=== PATIENT | female | born 1980 | race American Indian/Alaskan Native ===

== ENCOUNTER 2016-06-08 08:43 | Emergency (ER) | payer OTHER ==
--- NOTE | 2016-06-08 09:14 | Emergency Department Report ---
Chief Complaint: Vaginal Bleeding Stated Complaint: VAGINAL BLEEDING Time Seen by Provider: 06/08/16 09:07 - HPI History of Present Illness: 36-year-old -Filipino female comes in for vaginal bleeding that started this morning. Patient reports that she has some abdominal pressure. Patient reports she does have a past medical history of hypertension she is on amlodipine 10 mg but did not take it this morning secondary to concern of vaginal bleeding and just left the house to be evaluated here at the emergency room. The headache chest pain shortness of breathing. 8, para 1, miscarriage 3, 3. - Exam Vital Signs: Vital Signs 06/08/16 08:46 Temperature 98.7 F Pulse Rate 90 Respiratory 20 Rate Blood Pressure 198/142 O2 Sat by Pulse 100 Oximetry Physical Exam: Patient's alert and oriented 3 cardiovascular: Regular rate and rhythm S1-S2 no murmurs appreciated, Respiratory: Clear to auscultation bilateral Abdomen soft nontender bowel sounds present no distention MSE screening note: Focused history and physical exam performed. Due to findings the following was ordered: Appropriate labs have been ordered patient be evaluated the main ER ED Disposition for MSE Condition: Stable
[2016-06-08 09:47] LABS: Eosinophils % (Auto) 1.2 % (0.0-4.3); Hematocrit 39.7 % (30.3-42.9); Hemoglobin 13.1 gm/dl (10.1-14.3); Mean Corpuscular HGB Conc 33 % (30-34); Mean Corpuscular Hemoglobin 27 pg (28-32); Mean Corpuscular Volume 81 fl (79-97); Platelet Count 316 K/mm3 (140-440); Red Blood Count 4.89 M/mm3 (3.65-5.03); Red Cell Distribution Width 15.1 % (13.2-15.2)
[2016-06-08 09:58] LABS: Anion Gap 15 mmol/L; BUN/Creatinine Ratio 12.85; Blood Urea Nitrogen 9 mg/dL (7-17); Calcium 9.2 mg/dL (8.4-10.2); Carbon Dioxide 27 mmol/L (22-30); Glucose 93 mg/dL (65-100); Potassium 4.4 mmol/L (3.6-5.0); Sodium 137 mmol/L (137-145)
[2016-06-08 11:00] LABS: Bilirubin,Urine NEG (Negative); Blood,Urine LG (Negative); Ketones,Urine TR mg/dL (Negative); Leukocyte Esterase,Urine NEG (Negative); Nitrite,Urine NEG (Negative); RBC,Urine > 182.0 /HPF (0.0-6.0); Urobilinogen,Urine < 2.0 mg/dL (<2.0); WBC,Urine > 182.0 /HPF (0.0-6.0)
[2016-06-08] MEDS ORDERED: APRESOLINE IV ONE ×2 (11:18→11:50)
[2016-06-08] MEDS ORDERED: NORMODYNE IV ONE ×3 (13:32→14:55)
--- NOTE | 2016-06-08 14:01 | Admit Criteria Form ---
Admission Criteria Documentation: HYPERTENSIVE DISORDERS OF Clinical Indications for Admission to Inpatient Care (Place 'X' for any and all applicable criteria): Admission is indicated for ANY ONE of the following (1)(2)(3)(4)(5): [ ]I. Eclampsia[A][B] [ ]II. Preeclampsia with severe features (ie, severe preeclampsia) indicated by ANY ONE of the following[B][C]: [ ]a) SBP greater than or equal to 160 mm Hg or DBP greater than or equal to 110 mm Hg on 2 occasions at least 4 hours apart while the patient is at bed rest (unless antihypertensive therapy is initiated before this time) [ ]b) Platelet count less than 100,000/mm3 (100 x109/L) [ ]c) Impaired liver function as indicated by ANY ONE of the following: [ ]i. Elevation of liver enzymes (eg, SGOT, SGPT) to twice normal concentration [ ]ii. Severe persistent right upper quadrant or epigastric pain unresponsive to medication and not accounted for by alternative diagnosis [ ]d) Progressive renal insufficiency indicated by ANY ONE of the following: [ ]i. Serum creatinine concentration greater than 1.1 mg/dL (97 micromoles/L) [ ]ii. Doubling (from baseline) of serum creatinine concentration in the absence of other renal disease [ ]e) Pulmonary edema [ ]f) Cerebral or visual symptoms (eg, headache, Altered mental status , changes in vision) [ ]III. Delivery planned due to nonsevere preeclampsia as indicated by ALL of the following: [ ]a) Nonsevere preeclampsia present as indicated by ALL of the following: [ ]i. Woman at 20 or more weeks' gestation [ ]ii. New-onset SBP greater than or equal to 140 mm Hg but less than 160 mm Hg or DBP greater than or equal to 90 mm Hg but less than 110 mm Hg on 2 occasions at least 4 hours apart [ ]iii. Proteinuria present as indicated by ANY ONE of the following: [ ]A. Urinary protein excretion greater than or equal to 300 mg per 24-hour collection (or this amount extrapolated from a shorter timed collection) [ ]B. Protein/creatinine ratio greater than or equal to 0.3 (measured in mg/dL) [ ]b) Delivery indicated due to ANY ONE of the following: [ ]i. Gestational age of 37 0/7 weeks or more [ ]ii. Gestational age of 34 0/7 weeks to 36 6/7 weeks and ANY ONE of the following: [ ]A. Progressive labor or rupture of membranes [ ]B. Abnormal biophysical profile [ ]C. Suspected abruptio placentae [ ]D. Ultrasound estimate of weight less than 5th percentile [ ]E. Other indication for delivery [ ]IV. Delivery planned due to gestational hypertension[D] because of ANY ONE of the following: [ ]a) Delivery indicated because gestational age of 37 0/7 weeks or more has been reached [ ]b) Gestational age of 34 0/7 weeks to 36 6/7 weeks for which delivery is indicated because of ANY ONE of the following: [ ]i. Progressive labor or rupture of membranes [ ]ii. Abnormal biophysical profile [ ]iii. Suspected abruptio placentae [ ]iv. Ultrasound estimate of weight less than 5th percentile [ ]v. Other indication for delivery [ ]V. Hypertension of any category[E] during with acute end organ damage as indicated by ANY ONE of the following: [ ]a) Hypertensive encephalopathy (eg, Altered mental status that is severe or persistent )(11) [ ]b) Cerebral infarction [ ]c) Intracranial hemorrhage [ ]d) Myocardial ischemia or infarction [ ]e) Pulmonary edema [ ]f) Aortic dissection [ ]g) Seizure [ ]h) Papilledema [ ]i) Microangiopathic hemolytic anemia [ ]j) Visual loss [ ]k) Acute renal failure [ ]) Hypertension during with evidence of compromise as indicated by ANY ONE of the following: [ ]a) Abnormal heart tones [ ]b) Abnormal stress test [ ]c) Abnormal biophysical profile [ ]VII) patient requires inpatient control of blood pressure indicated by (see Hypertensive Disorders of : Observation Care [facility] guideline as appropriate) ALL of the following: [ ]a) SBP is greater than or equal to 160 mm Hg or DBP is greater than or equal to 105 mm Hg [ ]b) Blood pressure cannot be reduced below these levels with outpatient or observation care treatment (eg, oral medications not effective) Extended stay beyond goal length of stay may be needed for : [ ]a) Eclampsia [ ]b) Ongoing compromise [ ]c) Complications of hypertensive disorders of [ ]d) Active comorbidities (eg, heart failure, poorly controlled diabetes, renal insufficiency) [ ]e) Persistent hypertension [ ]f) Delivery planned The original Ellie Erazo content created by [employer] has been revised. The portions of the content which have been revised are identified through the use of italic text or in bold, and [facility] has neither reviewed nor approved the modified material. All other unmodified content is copyright [facility]. Please see references footnoted in the original [facility] [employer] edition 2016.
[2016-06-08] MEDS ORDERED: TYLENOL ONE (14:53)
[2016-06-08] MEDS ORDERED: TYLENOL PO ONE (15:01)
--- NOTE | 2016-06-08 15:35 | Emergency Department Report ---
HPI - General Chief Complaint: Vaginal Bleeding Time Seen by Provider: 06/08/16 09:07 - HPI HPI: Chief complaint: Vaginal bleeding and HPI: Patient is a 36-year-old female 8 para 1 is carious 3 3 and states that she found out 2 days ago that she was again. Patient states she began having bleeding this morning. Patient states it is spotting. Patient has a history of hypertension and is on Norvasc. Patient states she has not taken her Norvasc today took her last dose yesterday morning. Patient denies headache, shortness of breath or chest pain. Mode of arrival: [private car] Source: [Patient] Began: This morning Duration: Continuous Context: See above Quality: Cramping abdominal pain Severity: 4 out of 10 Improved with: Nothing Worsened with: Nothing Associated signs and symptoms: No fever, nausea or vomiting. ED Past Medical Hx - Past Medical History Previous Medical History?: Yes Hx Hypertension: Yes - Surgical History Past Surgical History?: Yes Hx Breast Surgery: Yes (Bilateral lumpectomy) Additional Surgical History: carpal tunner repair L - Social History Smoking Status: Former Smoker Substance Use Type: Prescribed - Medications Home Medications: Home Medications Medication Instructions Recorded Confirmed Last Taken Type Labetalol [Normodyne TAB] 200 mg PO BID #60 tablet 06/08/16 Unknown Rx ED Review of Systems ROS: Stated complaint: VAGINAL BLEEDING Other details as noted in HPI ROS Constitutional: No fever ENT: No uri symptoms Cardiovascular: No chest pain Respiratory: No sob or cough GI: No nausea vomiting or diarrhea : No dysuria frequency or urgency, Skin: No rash Neuro: No focal weakness or numbness Psych: No depression Efrain/lymph: No edema Physical Exam - Physical Exam Vital Signs: Vital Signs 06/08/16 06/08/16 06/08/16 08:46 12:06 12:07 Temperature 98.7 F Pulse Rate 90 Respiratory 20 Rate Blood Pressure 198/142 179/119 179/119 O2 Sat by Pulse 100 100 Oximetry 06/08/16 06/08/16 06/08/16 12:09 12:11 12:13 Temperature Pulse Rate Respiratory Rate Blood Pressure 179/119 179/119 179/119 O2 Sat by Pulse 100 100 100 Oximetry 06/08/16 06/08/16 06/08/16 12:15 12:16 12:17 Temperature Pulse Rate Respiratory Rate Blood Pressure 179/119 179/119 179/119 O2 Sat by Pulse 100 100 Oximetry 06/08/16 06/08/16 06/08/16 12:19 12:21 12:23 Temperature Pulse Rate Respiratory Rate Blood Pressure 179/119 179/119 179/119 O2 Sat by Pulse 100 100 100 Oximetry 06/08/16 06/08/16 06/08/16 12:25 12:27 12:29 Temperature Pulse Rate Respiratory Rate Blood Pressure 179/119 179/119 179/119 O2 Sat by Pulse 100 100 100 Oximetry 06/08/16 06/08/16 06/08/16 12:30 12:31 12:33 Temperature Pulse Rate Respiratory Rate Blood Pressure 189/123 189/123 189/123 O2 Sat by Pulse 100 100 100 Oximetry 06/08/16 06/08/16 06/08/16 12:35 12:37 12:39 Temperature Pulse Rate Respiratory Rate Blood Pressure 189/123 189/123 174/123 O2 Sat by Pulse 100 100 100 Oximetry 06/08/16 06/08/16 06/08/16 12:41 12:43 12:45 Temperature Pulse Rate Respiratory Rate Blood Pressure 174/123 174/123 179/114 O2 Sat by Pulse 100 100 100 Oximetry 06/08/16 06/08/16 06/08/16 12:47 12:49 12:51 Temperature Pulse Rate Respiratory Rate Blood Pressure 179/114 179/114 179/119 O2 Sat by Pulse 100 100 100 Oximetry 06/08/16 06/08/16 06/08/16 12:53 12:55 12:57 Temperature Pulse Rate Respiratory Rate Blood Pressure 179/119 179/119 179/119 O2 Sat by Pulse 100 100 100 Oximetry 06/08/16 06/08/16 06/08/16 12:58 12:59 13:00 Temperature Pulse Rate Respiratory Rate Blood Pressure 187/112 187/112 188/116 O2 Sat by Pulse 100 100 Oximetry 06/08/16 06/08/16 06/08/16 13:01 13:03 13:05 Temperature Pulse Rate Respiratory Rate Blood Pressure 188/116 188/116 188/116 O2 Sat by Pulse 100 100 100 Oximetry 06/08/16 06/08/16 06/08/16 13:06 13:07 13:09 Temperature Pulse Rate Respiratory Rate Blood Pressure 188/116 188/116 188/116 O2 Sat by Pulse 100 100 100 Oximetry 06/08/16 06/08/16 06/08/16 13:11 13:13 13:15 Temperature Pulse Rate Respiratory Rate Blood Pressure 188/116 188/116 204/119 O2 Sat by Pulse 100 100 100 Oximetry 06/08/16 06/08/16 06/08/16 13:16 13:19 13:30 Temperature Pulse Rate Respiratory Rate Blood Pressure 204/119 188/116 185/115 O2 Sat by Pulse 100 83 L Oximetry 06/08/16 06/08/16 06/08/16 13:41 13:45 14:00 Temperature Pulse Rate Respiratory Rate Blood Pressure 188/116 167/101 172/91 O2 Sat by Pulse Oximetry 06/08/16 14:23 Temperature Pulse Rate Respiratory 16 Rate Blood Pressure O2 Sat by Pulse 100 Oximetry Physical Exam: GENERAL: The patient is well-developed well-nourished . HEENT: Normocephalic. Atraumatic. Extraocular motions are intact. Patient has moist mucous membranes. NECK: Supple. No meningitic signs are noted. There is no adenopathy noted. CHEST/LUNGS: Clear to auscultation. There is no respiratory distress noted. HEART/CARDIOVASCULAR: Regular. There is no tachycardia. There is no gallop rub or murmur. ABDOMEN: Abdomen is soft, nontender. Patient has normal bowel sounds. There is no abdominal distention. SKIN: There is no rash. There is no edema. There is no diaphoresis. NEURO: The patient is awake, alert, and oriented. The patient is cooperative. The patient has no focal neurologic deficits. The patient has normal speech. MUSCULOSKELETAL: There is no tenderness or deformity. There is no limitation range of motion. There is no evidence of acute injury. ED Course Vital Signs 06/08/16 06/08/16 06/08/16 08:46 12:06 12:07 Temperature 98.7 F Pulse Rate 90 Respiratory 20 Rate Blood Pressure 198/142 179/119 179/119 O2 Sat by Pulse 100 100 Oximetry 06/08/16 06/08/16 06/08/16 12:09 12:11 12:13 Temperature Pulse Rate Respiratory Rate Blood Pressure 179/119 179/119 179/119 O2 Sat by Pulse 100 100 100 Oximetry 06/08/16 06/08/16 06/08/16 12:15 12:16 12:17 Temperature Pulse Rate Respiratory Rate Blood Pressure 179/119 179/119 179/119 O2 Sat by Pulse 100 100 Oximetry 06/08/16 06/08/16 06/08/16 12:19 12:21 12:23 Temperature Pulse Rate Respiratory Rate Blood Pressure 179/119 179/119 179/119 O2 Sat by Pulse 100 100 100 Oximetry 06/08/16 06/08/16 06/08/16 12:25 12:27 12:29 Temperature Pulse Rate Respiratory Rate Blood Pressure 179/119 179/119 179/119 O2 Sat by Pulse 100 100 100 Oximetry 06/08/16 06/08/16 06/08/16 12:30 12:31 12:33 Temperature Pulse Rate Respiratory Rate Blood Pressure 189/123 189/123 189/123 O2 Sat by Pulse 100 100 100 Oximetry 06/08/16 06/08/16 06/08/16 12:35 12:37 12:39 Temperature Pulse Rate Respiratory Rate Blood Pressure 189/123 189/123 174/123 O2 Sat by Pulse 100 100 100 Oximetry 06/08/16 06/08/16 06/08/16 12:41 12:43 12:45 Temperature Pulse Rate Respiratory Rate Blood Pressure 174/123 174/123 179/114 O2 Sat by Pulse 100 100 100 Oximetry 06/08/16 06/08/16 06/08/16 12:47 12:49 12:51 Temperature Pulse Rate Respiratory Rate Blood Pressure 179/114 179/114 179/119 O2 Sat by Pulse 100 100 100 Oximetry 06/08/16 06/08/16 06/08/16 12:53 12:55 12:57 Temperature Pulse Rate Respiratory Rate Blood Pressure 179/119 179/119 179/119 O2 Sat by Pulse 100 100 100 Oximetry 06/08/16 06/08/16 06/08/16 12:58 12:59 13:00 Temperature Pulse Rate Respiratory Rate Blood Pressure 187/112 187/112 188/116 O2 Sat by Pulse 100 100 Oximetry 06/08/16 06/08/16 06/08/16 13:01 13:03 13:05 Temperature Pulse Rate Respiratory Rate Blood Pressure 188/116 188/116 188/116 O2 Sat by Pulse 100 100 100 Oximetry 06/08/16 06/08/16 06/08/16 13:06 13:07 13:09 Temperature Pulse Rate Respiratory Rate Blood Pressure 188/116 188/116 188/116 O2 Sat by Pulse 100 100 100 Oximetry 06/08/16 06/08/16 06/08/16 13:11 13:13 13:15 Temperature Pulse Rate Respiratory Rate Blood Pressure 188/116 188/116 204/119 O2 Sat by Pulse 100 100 100 Oximetry 06/08/16 06/08/16 06/08/16 13:16 13:19 13:30 Temperature Pulse Rate Respiratory Rate Blood Pressure 204/119 188/116 185/115 O2 Sat by Pulse 100 83 L Oximetry 06/08/16 06/08/16 06/08/16 13:41 13:45 14:00 Temperature Pulse Rate Respiratory Rate Blood Pressure 188/116 167/101 172/91 O2 Sat by Pulse Oximetry 06/08/16 14:23 Temperature Pulse Rate Respiratory 16 Rate Blood Pressure O2 Sat by Pulse 100 Oximetry - Reevaluation(s) Reevaluation #1: 06/08/16 15:33 Patient was given 20 mg of IV hydralazine after consulting with the [facility] client technical professional Dr. Marva Edmonds. Patient was then given 20 mg of IV labetalol followed by 20 mg of IV labetalol. Patient has improvement of her blood pressure. Patient will be put on 200 mg of labetalol twice a day and referred back to Dr. Edmonds. ED Medical Decision Making - Lab Data Result diagrams: 06/08/16 09:35 06/08/16 09:35 - Radiology Data Radiology results: report reviewed (pelvic ultrasound shows a sac in the uterus at 5 weeks 2 days. No pole no heartbeat irregular shape) Critical care attestation.: If time is entered above; I have spent that time in minutes in the direct care of this critically ill patient, excluding procedure time. ED Disposition Clinical Impression: Threatened miscarriage Hypertension Qualifiers: Hypertension type: essential hypertension Qualified Code(s): I10 - Essential ( primary) hypertension Disposition: DISCHARGED TO HOME OR SELFCARE Is pt being admited?: No Does the pt Need Aspirin: No Condition: Stable Instructions: Hypertension (ED), Threatened Miscarriage (ED) Additional Instructions: Stopped taking your Norvasc and switched to labetalol. Prescriptions: Labetalol [Normodyne TAB] 200 mg PO BID #60 tablet Referrals: MARVA EDMONDS MD [Staff Physician] - 3-5 Days (Dr. Edmonds is an [facility] for you to follow-up with.) Time of Disposition: 15:49
[2016-06-08 15:36] VITALS: BP 140/90
--- NOTE | 2016-06-08 15:45 | Ultrasound Report ---
Transvaginal and transabdominal OB ultrasound. History: Vaginal bleeding. Her serum hCG at the time of the study is 4774. Findings: There is a subtle lucency within the endometrial cavity measuring 6.9 mm in diameter. The shape of the sonolucency is somewhat flattened, and there is no evidence of a yolk sac or a pole. No cardiac activity is identified. There is no subchorionic hemorrhage. There are multiple heterogeneous uterine masses the largest of which measures 3.8 x 5.2 cm located in the fundus. There is a 1.8 cm in diameter complex lesion in the right ovary. The left ovary is normal. Impression: The endometrial sonolucency may represent a gestational sac although the contour is abnormally flattened. There is no evidence of a pole or yolk sac at this time. A followup study in 5-7 days is recommended if clinically appropriate. 2. Multiple uterine fibroids. 3. Probable complex cyst in the right ovary.
== END 2016-06-08 16:04 | disposition home or self-care (01) ==
LOC: ED 08:43
DX: O20.0 Threatened abortion (principal); I10 Essential (primary) hypertension; Z87.891 Personal history of nicotine dependence
CPT/HCPCS: 36415; 76801; 76817; 80048; 81001; 84702; 85025; 86850; 86900; 86901; 96374; 96375; 96376; 99284; J0360

== ENCOUNTER 2016-06-26 12:45 | Emergency (ER) | payer OTHER ==
[2016-06-26] MEDS ORDERED: APRESOLINE IV ONE ×2 (13:17→14:28)
[2016-06-26 13:38] LABS: Hematocrit 41.2 % (30.3-42.9); Hemoglobin 13.1 gm/dl (10.1-14.3); Mean Corpuscular HGB Conc 32 % (30-34); Mean Corpuscular Hemoglobin 26 pg (28-32); Mean Corpuscular Volume 82 fl (79-97); Platelet Count 298 K/mm3 (140-440); Red Blood Count 5.05 M/mm3 (3.65-5.03); Red Cell Distribution Width 16.4 % (13.2-15.2); White Blood Count 5.4 K/mm3 (4.5-11.0)
[2016-06-26 13:53] LABS: Anion Gap 15 mmol/L; BUN/Creatinine Ratio 8.57; Blood Urea Nitrogen 6 mg/dL (7-17); Carbon Dioxide 27 mmol/L (22-30); Chloride 102.6 mmol/L (98-107); Glucose 92 mg/dL (65-100); Potassium 3.5 mmol/L (3.6-5.0); Sodium 141 mmol/L (137-145)
--- NOTE | 2016-06-26 14:30 | Emergency Department Report ---
HPI - General Chief Complaint: Abdominal Pain Time Seen by Provider: 06/26/16 13:42 - HPI HPI: Chief complaint: Vaginal spotting and pelvic pain HPI: Patient is a 36-year-old female 8 para 1 miscarriage 3 3 who was seen here June 08 of this month with hypertension and vaginal bleeding. Patient was switched from Norvasc to labetalol but did not get the labetalol and continue to take her Norvasc. Patient states she took her Norvasc this morning but despite that her blood pressure is elevated. Patient's ultrasound showed an intrauterine sac that was misshapen and there was concern for threatened miscarriage or missed AB. Patient did not follow-up with OB as she states she did not have any insurance. Patient is coming back today for vaginal spotting. Mode of arrival: private car Source: Patient old chart Began: Patient developed pelvic pain 3 days ago. Duration: See above Context: See above Quality: Crampy Severity: 7 out of 10 Improved with: Nothing Worsened with: Nothing Associated signs and symptoms: See above. No headache, nausea, vomiting ED Past Medical Hx - Past Medical History Hx Hypertension: Yes Additional medical history: preclampsia with other preg - Surgical History Hx Breast Surgery: Yes (Bilateral lumpectomy) Additional Surgical History: carpal tunner repair L - Social History Smoking Status: Never Smoker Substance Use Type: None - Medications Home Medications: Home Medications Medication Instructions Recorded Confirmed Last Taken Type Labetalol [Normodyne TAB] 200 mg PO BID #60 tablet 06/08/16 Unknown Rx Ibuprofen [Motrin 600 MG tab] 600 mg PO Q8H PRN #20 tablet 06/26/16 Unknown Rx Losartan/Hydrochlorothiazide 1 each PO DAILY #30 tablet 06/26/16 Unknown Rx [Losartan-Hctz 100-25 mg Tab] Verapamil [Calan] 120 mg PO BID #60 tablet 06/26/16 Unknown Rx ED Review of Systems ROS: Stated complaint: ABD PAIN Other details as noted in HPI ROS Constitutional: No fever ENT: No uri symptoms Cardiovascular: No chest pain Respiratory: No sob or cough GI: No nausea vomiting or diarrhea : No dysuria frequency or urgency, Skin: No rash Neuro: No focal weakness or numbness Psych: No depression Efrain/lymph: No edema Physical Exam - Physical Exam Vital Signs: Vital Signs 06/26/16 06/26/16 06/26/16 12:55 13:47 13:49 Temperature 98.5 F Pulse Rate 84 84 Respiratory 20 Rate Blood Pressure 195/138 195/138 176/116 O2 Sat by Pulse 100 Oximetry 06/26/16 06/26/16 13:53 14:00 Temperature Pulse Rate Respiratory Rate Blood Pressure 176/107 175/102 O2 Sat by Pulse Oximetry Physical Exam: GENERAL: The patient is well-developed well-nourished . HEENT: Normocephalic. Atraumatic. Extraocular motions are intact. Patient has moist mucous membranes. NECK: Supple. No meningitic signs are noted. There is no adenopathy noted. CHEST/LUNGS: Clear to auscultation. There is no respiratory distress noted. HEART/CARDIOVASCULAR: Regular. There is no tachycardia. There is no gallop rub or murmur. ABDOMEN: Abdomen is soft, mild right lower quadrant tenderness. No rebound or guarding Patient has normal bowel sounds. There is no abdominal distention. SKIN: There is no rash. There is no edema. There is no diaphoresis. NEURO: The patient is awake, alert, and oriented. The patient is cooperative. The patient has no focal neurologic deficits. The patient has normal speech. MUSCULOSKELETAL: There is no tenderness or deformity. There is no limitation range of motion. There is no evidence of acute injury. ED Course Vital Signs 06/26/16 06/26/16 06/26/16 12:55 13:47 13:49 Temperature 98.5 F Pulse Rate 84 84 Respiratory 20 Rate Blood Pressure 195/138 195/138 176/116 O2 Sat by Pulse 100 Oximetry 06/26/16 06/26/16 13:53 14:00 Temperature Pulse Rate Respiratory Rate Blood Pressure 176/107 175/102 O2 Sat by Pulse Oximetry - Reevaluation(s) Reevaluation #1: 06/26/16 14:30 Patient given 10 of IV hydralazine with some lowering of her pressure. Patient will be given a second dose when she returns from ultrasound. 06/26/16 17:15 Patient given another 10 of hydralazine and 20 mg of IV labetalol. Will change her home blood pressure medication to something more affordable and add a second blood pressure medication. ED Medical Decision Making - Lab Data Result diagrams: 06/26/16 13:13 06/26/16 13:13 Laboratory Tests 06/08/16 06/26/16 09:35 13:13 HCG, Quant 4774 H 18.26 H Urinalysis within normal limits. - Radiology Data Radiology results: report reviewed (no IUP noted. No retained products of conception noted. A previous ultrasound showed a misshapened sac and patient most likely miscarried at that time.) - Medical Decision Making Patient's hCG has now dropped to 18. Critical care attestation.: If time is entered above; I have spent that time in minutes in the direct care of this critically ill patient, excluding procedure time. ED Disposition Clinical Impression: Miscarriage, Essential hypertension Disposition: DISCHARGED TO HOME OR SELFCARE Is pt being admited?: No Does the pt Need Aspirin: No Condition: Stable Instructions: Spontaneous Miscarriage (ED), Hypertension (ED) Additional Instructions: You can take your Norvasc until finished along with the losartan 100/25. When you finish the Norvasc begin taking the verapamil in addition to the losartan. Prescriptions: Ibuprofen [Motrin 600 MG tab] 600 mg PO Q8H PRN #20 tablet PRN Reason: Pain Losartan/Hydrochlorothiazide [Losartan-Hctz 100-25 mg Tab] 1 each PO DAILY #30 tablet Verapamil [Calan] 120 mg PO BID #60 tablet Referrals: [facility] [Provider Group] - 3-5 Days [facility] [Provider Group] - 7-10 days (Follow-up for a blood pressure recheck.) Time of Disposition: 16:39
[2016-06-26 15:45] LABS: Bacteria,Urine 1+ /HPF (Negative); Bilirubin,Urine NEG (Negative); Blood,Urine NEG (Negative); Ketones,Urine NEG (Negative); Leukocyte Esterase,Urine NEG (Negative); Mucus,Urine FEW /HPF; Nitrite,Urine NEG (Negative); Protein,Urine <15 mg/dL mg/dL (Negative); Urobilinogen,Urine < 2.0 mg/dL (<2.0)
--- NOTE | 2016-06-26 15:45 | Ultrasound Report ---
FINAL REPORT EXAM: US TRANSVAGINAL HISTORY: preg with pelvic pain TECHNIQUE: Ultrasound pelvis transvaginal with color Doppler evaluation PRIORS: None. FINDINGS: Uterus measures 11.2 x 7.6 x 6.3 centimeters endometrial thickness is 0.48 centimeters multiple solid-appearing echogenic foci are seen within uterus the largest is 2.5 x 1.8 x 3.6 centimeters most consistent with fibroids the right ovary was not identified Left ovary is 3.4 x 1.1 x 1.8 centimeters. There is a cystic focus within the left ovary 1.6 centimeters containing diffuse low-level echoes. No definitive abnormal adnexal mass identified IMPRESSION: Intrauterine gestation was not identified. Differential consideration includes very early IUP, occult ectopic or blighted ovum. Continued followup recommended Multiple uterine fibroids noted identified The right ovary was not identified
--- NOTE | 2016-06-26 15:46 | Ultrasound Report ---
FINAL REPORT EXAM: US OB \T\lt; = 14 WEEKS FETUS HISTORY: preg with pelvic pain TECHNIQUE: PRIORS: None. FINDINGS: Uterus measures 11.2 x 7.6 x 6.3 centimeters endometrial thickness is 0.48 centimeters multiple solid-appearing echogenic foci are seen within uterus the largest is 2.5 x 1.8 x 3.6 centimeters most consistent with fibroids the right ovary was not identified Left ovary is 3.4 x 1.1 x 1.8 centimeters. There is a cystic focus within the left ovary 1.6 centimeters containing diffuse low-level echoes. No definitive abnormal adnexal mass identified IMPRESSION: Intrauterine gestation was not identified. Differential consideration includes very early IUP, occult ectopic or blighted ovum. Continued followup recommended Multiple uterine fibroids noted The right ovary was not identified
[2016-06-26] MEDS ORDERED: NORMODYNE IV ONE (16:31)
[2016-06-26] MEDS ORDERED: MOTRIN PO ONE (17:05)
[2016-06-26 17:19] VITALS: BP 158/101
== END 2016-06-26 17:31 | disposition home or self-care (01) ==
LOC: ED 12:45
DX: O03.9 Complete or unspecified spontaneous abortion without complication (principal); O26.891 Other specified pregnancy related conditions, first trimester; I10 Essential (primary) hypertension
CPT/HCPCS: 36415; 76801; 76817; 76830; 80048; 81001; 84702; 85027; 96374; 96375; 96376; 99284; J0360

== ENCOUNTER 2016-10-04 10:20 | Emergency (ER) | payer OTHER ==
--- NOTE | 2016-10-04 11:00 | Emergency Department Report ---
Entered by MONIKA SOUZA, acting as scribe for MIKE HERNDON NP. Chief Complaint: Vaginal Bleeding Stated Complaint: POSITIVE FOR PREG/BLEEDING AND CRAMPING Time Seen by Provider: 10/04/16 10:47 - HPI History of Present Illness: 36 y/o female, nontoxic, well nourished in appearance, no acute signs of distress presents with right sided lower pelvic pain and vaginal bleeding since yesterday. pt denies blurry vision, n/v/d, fever, chills, chest pain, SOB, CASTRO or dizziness, numbness, tingling. She notes passing a small clot yesterday. Pt notes a positive test last week. She is known HTN at baseline and reports taking amlodipine at 0200 this morning. - ROS Review of Systems: Pt notes vaginal bleeding, lower pelvic pain Pt denies blurry vision, n/v/d, fever, chills, chest pain, SOB, CASTRO or dizziness , numbness, tingling - Exam Vital Signs: Vital Signs 10/04/16 10:31 Temperature 98.8 F Pulse Rate 100 H Respiratory 17 Rate Blood Pressure 181/126 O2 Sat by Pulse 100 Oximetry Physical Exam: Constitutional: Non toxic appearing, NAD. Cardiovascular: Normal rate and rhythm with normal S1/S2 sounds. Respiratory: No respiratory distress. Lung sounds clear to auscultation bilaterally. Abdomen: Soft, nontender, and nondistended. Positive bowel sounds. No hepatosplenomegaly was noted. No guarding or rebound tenderness, negative epigastric bruit. Negative psoas sign, negative zamora sign, negative McBurneys sign. Right sided pelvic suprapubic tenderness. MSE screening note: Focused history and physical exam performed. Due to findings the following was ordered: Amylase, BMP, CBC, Preg Test, Lipase, UA, US OB and US Transvaginal. ED Disposition for MSE Condition: Stable This documentation as recorded by the scribe,MONIKA SOUZA,accurately reflects the service I personally performed and the decisions made by me,MIKE HERNDON, MARTINA.
[2016-10-04 11:30] LABS: Basophils % (Auto) 0.7 % (0.0-1.8); Eosinophils % (Auto) 0.6 % (0.0-4.3); Hematocrit 39.7 % (30.3-42.9); Mean Corpuscular HGB Conc 33 % (30-34); Mean Corpuscular Hemoglobin 27 pg (28-32); Mean Corpuscular Volume 82 fl (79-97); Platelet Count 349 K/mm3 (140-440); Red Blood Count 4.82 M/mm3 (3.65-5.03); Red Cell Distribution Width 16.5 % (13.2-15.2)
[2016-10-04 11:43] LABS: Bacteria,Urine 1+ /HPF (Negative); Bilirubin,Urine NEG (Negative); Blood,Urine LG (Negative); Ketones,Urine NEG (Negative); Leukocyte Esterase,Urine NEG (Negative); Mucus,Urine FEW /HPF; Nitrite,Urine NEG (Negative); Protein,Urine <15 mg/dL mg/dL (Negative); Urobilinogen,Urine < 2.0 mg/dL (<2.0); WBC,Urine < 1.0 /HPF (0.0-6.0)
[2016-10-04 11:47] LABS: Amylase 112 units/L (27-131); Anion Gap 17 mmol/L; BUN/Creatinine Ratio 12.85; Blood Urea Nitrogen 9 mg/dL (7-17); Calcium 9.1 mg/dL (8.4-10.2); Carbon Dioxide 26 mmol/L (22-30); Chloride 99.3 mmol/L (98-107); Glucose 89 mg/dL (65-100); Lipase 27 units/L (13-60); Potassium 3.6 mmol/L (3.6-5.0); Sodium 139 mmol/L (137-145)
[2016-10-04] MEDS ORDERED: NORVASC PO ONE (11:47)
[2016-10-04] MEDS ORDERED: NACL 0.9% 1000 ML 1,000 ML IV ONE (11:47)
--- NOTE | 2016-10-04 11:47 | Emergency Department Report ---
ED Abdominal Pain HPI - General Chief Complaint: Vaginal Bleeding Stated Complaint: POSITIVE FOR PREG/BLEEDING AND CRAMPING Time Seen by Provider: 10/04/16 11:31 Source: patient Mode of arrival: Ambulatory Limitations: No Limitations - History of Present Illness Initial Comments: Patient is a 36-year-old female with history of hypertension, at unknown weeks gestation presenting with lower abdominal cramping and vaginal spotting since this AM. Pt describes the spotting as dark red blood seen on wiping and 1 small clot. Patient reports she just found out she was 5 days ago via home test. 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 Otherwise no fevers, chills, CASTRO, dizziness, NVD, chest pain, SOB, extremity pain/swelling , travel, trauma, or sick contacts - Related Data Previous Rx's Medication Instructions Recorded Last Taken Type Labetalol [Normodyne TAB] 100 mg PO BID #14 tablet 10/04/16 Unknown Rx Allergies Allergy/AdvReac Type Severity Reaction Status Date / Time codeine Allergy Rash Verified 10/04/16 10:28 ED Review of Systems ROS: Stated complaint: POSITIVE FOR PREG/BLEEDING AND CRAMPING Other details as noted in HPI Comment: All other systems reviewed and negative ED Past Medical Hx - Past Medical History Hx Hypertension: Yes Additional medical history: preclampsia with other preg - Surgical History Hx Breast Surgery: Yes (Bilateral lumpectomy) Additional Surgical History: carpal tunnel repair L. - Social History Smoking Status: Current Every Day Smoker Substance Use Type: None - Medications Home Medications: Home Medications Medication Instructions Recorded Confirmed Last Taken Type Labetalol [Normodyne TAB] 100 mg PO BID #14 tablet 10/04/16 Unknown Rx ED Physical Exam - General Limitations: No Limitations General appearance: alert, in no apparent distress - Head Head exam: Present: atraumatic, normocephalic - Eye Eye exam: Present: normal appearance - ENT ENT exam: Present: mucous membranes moist - Neck Neck exam: Present: normal inspection - Respiratory Respiratory exam: Present: normal lung sounds bilaterally. Absent: respiratory distress - Cardiovascular Cardiovascular Exam: Present: regular rate, normal rhythm. Absent: systolic murmur, diastolic murmur, rubs, gallop - GI/Abdominal GI/Abdominal exam: Present: soft, tenderness (suprapubic), normal bowel sounds. Absent: distended, guarding, rebound, rigid - Extremities Exam Extremities exam: Present: normal inspection - Back Exam Back exam: Present: normal inspection - Neurological Exam Neurological exam: Present: alert, oriented X3 - Psychiatric Psychiatric exam: Present: normal affect, normal mood - Skin Skin exam: Present: warm, dry, intact, normal color. Absent: rash ED Course Vital Signs 10/04/16 10/04/16 10/04/16 10:31 11:51 12:00 Temperature 98.8 F Pulse Rate 100 H Respiratory 17 Rate Blood Pressure 181/126 180/117 170/113 O2 Sat by Pulse 100 Oximetry 10/04/16 10/04/16 12:02 13:47 Temperature Pulse Rate 82 Respiratory 16 Rate Blood Pressure 180/117 O2 Sat by Pulse 98 Oximetry ED Medical Decision Making - Lab Data Result diagrams: 10/04/16 11:02 10/04/16 11:02 - Radiology Data Radiology results: report reviewed OB US: Single IUP identified. A small pole measuring 3 mm in length is identifiable heart rate of 111 bpm. Estimated gestational age of 5 weeks 6 days. Prominent subchorionic hemorrhage measuring 4.7 x 3.3 cm. 1.6 cm diameter cyst in the right ovary. Multiple uterine fibroids are again noted. - Medical Decision Making Pt normally takes norvasc 10mg PO daily. Last dose was 2 am, will give 10mg now Results discussed with patient, Pt given copy of U/S and to follow up with her public accountant for BP control with another agent other than norvasc and to have her Beta quant rechecked in 2 days Critical care attestation.: If time is entered above; I have spent that time in minutes in the direct care of this critically ill patient, excluding procedure time. ED Disposition Clinical Impression: Threatened , Hypertension Disposition: DC-01 TO HOME OR SELFCARE Is pt being admited?: No Condition: Stable Instructions: Hypertension (ED), Threatened Miscarriage (ED) Prescriptions: Labetalol [Normodyne TAB] 100 mg PO BID #14 tablet Referrals: PRIMARY CARE, [Primary Care Provider] - 3-5 Days
--- NOTE | 2016-10-04 13:45 | Ultrasound Report ---
Transvaginal and transabdominal OB ultrasound. History: Vaginal bleeding. Findings: A single intrauterine is identified. A small pole measuring 3 mm in length is identified with a heart rate of 111 beats per minute. The size of the pole corresponds to a gestational age of 5 weeks 6 days. There is a prominent subchorionic hemorrhage measuring 4.7 x 3.3 cm. There is a 1.6 cm diameter cyst in the right ovary. The left ovary is normal. Multiple uterine fibroids are again noted. Minimal free fluid is noted within the cul-de-sac. Impression: 1. Viable IUP at 5 weeks 6 days gestational age. A large subchronic hemorrhage is identified. 2. Multiple uterine fibroids. 3. 1.6 cm right ovarian cyst.
[2016-10-04 15:05] VITALS: BP 180/116
== END 2016-10-04 15:10 | disposition home or self-care (01) ==
LOC: ED 10:20
DX: O20.0 Threatened abortion (principal); Z3A.01 Less than 8 weeks gestation of pregnancy; I10 Essential (primary) hypertension; F17.200 Nicotine dependence, unspecified, uncomplicated; Z88.5 Allergy status to narcotic agent
CPT/HCPCS: 36415; 76801; 76817; 80048; 81001; 82150; 83690; 84702; 85025; 86850; 86900; 86901; 96360; 99284; J7030

== ENCOUNTER 2016-10-22 06:32 | Emergency (ER) | payer SELFPAY ==
[2016-10-22 07:22] LABS: Basophils % (Auto) 0.7 % (0.0-1.8); Hematocrit 35.3 % (30.3-42.9); Hemoglobin 11.6 gm/dl (10.1-14.3); Mean Corpuscular HGB Conc 33 % (30-34); Mean Corpuscular Hemoglobin 27 pg (28-32); Mean Corpuscular Volume 83 fl (79-97); Platelet Count 317 K/mm3 (140-440); Red Blood Count 4.28 M/mm3 (3.65-5.03); Red Cell Distribution Width 17.3 % (13.2-15.2); White Blood Count 5.3 K/mm3 (4.5-11.0)
[2016-10-22 07:38] LABS: Alanine Aminotransferase 9 units/L (7-56); Albumin 3.8 g/dL (3.9-5); Albumin/Globulin Ratio 1.1 %; Alkaline Phosphatase 52 units/L (35-129); Anion Gap 18 mmol/L; BUN/Creatinine Ratio 11.66; Blood Urea Nitrogen 7 mg/dL (7-17); Calcium 9.3 mg/dL (8.4-10.2); Carbon Dioxide 22 mmol/L (22-30); Chloride 104.6 mmol/L (98-107); Glucose 95 mg/dL (65-100); Lipase 23 units/L (13-60); Potassium 3.6 mmol/L (3.6-5.0); Sodium 141 mmol/L (137-145); Total Protein 7.3 g/dL (6.3-8.2)
--- NOTE | 2016-10-22 08:44 | Ultrasound Report ---
FINAL REPORT EXAM: US OB \T\lt; = 14 WEEKS FETUS HISTORY: vaginal bleed COMPARISONS: 10/04/2016 FINDINGS: Transabdominal grayscale and color Doppler first-trimester ultrasound Endometrial gestational sac is present. The caudal aspect of the gestational sac is irregular, which is new from recent comparison. A perigestational hemorrhage extending into the lower uterine segment involves only a small portion of the gestational sac but measures 4.6 x 2.5 x 4.4 cm. The pole is not identified. Cystic structures in both ovaries appear similar to prior. The right ovary measures 5.2 x 2.6 x 3 cm and the left ovary measures 3 x 1.8 x 2.1 cm. Several transmural fibroids measure up to 4.8 cm in greatest dimension. No endometrial distortion. IMPRESSION: No pole identified. Gestational hemorrhage and irregularity of the gestational sac are concerning for in progress/ demise. Close interval clinical and sonographic follow-up are recommended. Dr. Pagan discussed findings with Liana Lofton RN at 0737 ANALYST GEOCHEMICAL PROSPECTING following the examination.
--- NOTE | 2016-10-22 08:45 | Ultrasound Report ---
FINAL REPORT EXAM: US OB TRANSVAGINAL HISTORY: vaginal bleed COMPARISONS: 10/04/2016 FINDINGS: Transvaginal grayscale and color Doppler first-trimester ultrasound Endometrial gestational sac is present. The caudal aspect of the gestational sac is irregular, which is new from recent comparison. A perigestational hemorrhage extending into the lower uterine segment involves only a small portion of the gestational sac but measures 4.6 x 2.5 x 4.4 cm. The pole is not identified. Cystic structures in both ovaries appear similar to prior. The right ovary measures 5.2 x 2.6 x 3 cm and the left ovary measures 3 x 1.8 x 2.1 cm. Several transmural fibroids measure up to 4.8 cm in greatest dimension. No endometrial distortion. IMPRESSION: No pole identified. Perigestational hemorrhage and irregularity of the gestational sac are concerning for in progress/ demise. Close interval clinical and sonographic follow-up are recommended. Dr. Pagan discussed findings with Liana Lofton RN at 0737 MANAGER INTERFACE following the examination.
[2016-10-22 08:53] LABS: Bilirubin,Urine NEG (Negative); Blood,Urine LG (Negative); Ketones,Urine NEG (Negative); Leukocyte Esterase,Urine NEG (Negative); Nitrite,Urine NEG (Negative); Urobilinogen,Urine < 2.0 mg/dL (<2.0)
[2016-10-22] MEDS ORDERED: APRESOLINE PO ONE (09:35)
--- NOTE | 2016-10-22 09:41 | Emergency Department Report ---
ED Female HPI - General Chief complaint: Vaginal Bleeding Stated complaint: 8WKS PREG/VAG BLEEDIN Time Seen by Provider: 10/22/16 09:29 Source: patient Mode of arrival: Ambulatory Limitations: No Limitations - History of Present Illness Initial comments: PATIENT IS 8 WKS PRESENTED WITH VAGNIAL BLEEDING STARTED LAST NIGHT. MD Complaint: vaginal bleeding, pelvic pain -: Gradual, Last night Radiation: suprapubic Quality: cramping Are you Now?: Yes (8 WKS ) Associated Symptoms: vaginal bleeding, abdominal pain. denies: nausea/vomiting , fever/chills, headaches, loss of appetite - Related Data Sexually active: Yes : 8 Para: 1 A: 6 Previous Rx's Medication Instructions Recorded Last Taken Type Labetalol [Normodyne TAB] 100 mg PO BID #14 tablet 10/04/16 10/22/16 Rx Methylergonovine [Methergine] 0.2 mg PO Q8HR #30 tablet 10/22/16 Unknown Rx Ondansetron [Zofran Odt] 4 mg PO Q8HR PRN #14 tab.rapdis 10/22/16 Unknown Rx hydrALAZINE [Apresoline TAB] 10 mg PO Q8H #30 tablet 10/22/16 Unknown Rx traMADol [Ultram 50 MG tab] 50 mg PO Q4HR PRN #14 tablet 10/22/16 Unknown Rx Allergies Allergy/AdvReac Type Severity Reaction Status Date / Time codeine Allergy Rash Verified 10/04/16 10:28 ED Review of Systems ROS: Stated complaint: 8WKS PREG/VAG BLEEDIN Other details as noted in HPI Comment: All other systems reviewed and negative Constitutional: denies: fever Cardiovascular: denies: chest pain, palpitations, syncope Gastrointestinal: abdominal pain. denies: nausea, vomiting, hematemesis Neurological: denies: headache, weakness, numbness, paresthesias ED Past Medical Hx - Past Medical History Previous Medical History?: Yes Hx Hypertension: Yes Additional medical history: preclampsia with other preg - Surgical History Past Surgical History?: Yes Hx Breast Surgery: Yes (Bilateral lumpectomy) Additional Surgical History: carpal tunnel repair L. - Social History Smoking Status: Never Smoker Substance Use Type: None - Medications Home Medications: Home Medications Medication Instructions Recorded Confirmed Last Taken Type Labetalol [Normodyne TAB] 100 mg PO BID #14 tablet 10/04/16 10/22/16 10/22/16 Rx Methylergonovine [Methergine] 0.2 mg PO Q8HR #30 tablet 10/22/16 Unknown Rx Ondansetron [Zofran Odt] 4 mg PO Q8HR PRN #14 tab.rapdis 10/22/16 Unknown Rx hydrALAZINE [Apresoline TAB] 10 mg PO Q8H #30 tablet 10/22/16 Unknown Rx traMADol [Ultram 50 MG tab] 50 mg PO Q4HR PRN #14 tablet 10/22/16 Unknown Rx ED Physical Exam - General Limitations: No Limitations General appearance: alert, in no apparent distress - Head Head exam: Present: atraumatic, normocephalic - ENT ENT exam: Present: normal exam - Neck Neck exam: Present: normal inspection - Respiratory Respiratory exam: Present: normal lung sounds bilaterally - Cardiovascular Cardiovascular Exam: Present: regular rate - GI/Abdominal GI/Abdominal exam: Present: soft. Absent: tenderness, guarding, rebound ED Course Vital Signs 10/22/16 10/22/16 10/22/16 06:33 09:21 09:23 Temperature 99.0 F Pulse Rate 79 Respiratory 18 Rate Blood Pressure 172/111 172/111 Blood Pressure 159/119 [Right] O2 Sat by Pulse 100 98 Oximetry 10/22/16 10/22/16 10/22/16 09:25 09:34 09:36 Temperature Pulse Rate 80 Respiratory 18 18 Rate Blood Pressure 172/111 Blood Pressure 172/111 [Right] O2 Sat by Pulse 100 100 100 Oximetry 10/22/16 10/22/16 10/22/16 09:39 09:44 09:55 Temperature Pulse Rate 80 Respiratory Rate Blood Pressure 172/111 172/111 172/111 Blood Pressure [Right] O2 Sat by Pulse 100 97 Oximetry 10/22/16 10/22/16 10/22/16 09:56 09:59 10:01 Temperature Pulse Rate Respiratory Rate Blood Pressure 172/111 172/111 157/137 Blood Pressure [Right] O2 Sat by Pulse 100 100 100 Oximetry 10/22/16 10/22/16 10/22/16 10:03 10:05 10:07 Temperature Pulse Rate Respiratory Rate Blood Pressure 157/137 157/137 157/137 Blood Pressure [Right] O2 Sat by Pulse 100 100 100 Oximetry 10/22/16 10/22/16 10/22/16 10:09 10:11 10:13 Temperature Pulse Rate Respiratory Rate Blood Pressure 157/137 157/137 157/137 Blood Pressure [Right] O2 Sat by Pulse 100 100 96 Oximetry 10/22/16 10/22/16 10/22/16 10:15 10:17 10:19 Temperature Pulse Rate Respiratory Rate Blood Pressure 157/137 157/137 157/137 Blood Pressure [Right] O2 Sat by Pulse 100 100 100 Oximetry 10/22/16 10/22/16 10/22/16 10:21 10:23 10:25 Temperature Pulse Rate Respiratory Rate Blood Pressure 157/137 157/137 157/137 Blood Pressure [Right] O2 Sat by Pulse 100 100 100 Oximetry 10/22/16 10/22/16 10/22/16 10:27 10:29 10:30 Temperature Pulse Rate Respiratory Rate Blood Pressure 157/137 157/137 169/105 Blood Pressure [Right] O2 Sat by Pulse 100 100 100 Oximetry 10/22/16 10/22/16 10/22/16 10:31 10:33 10:35 Temperature Pulse Rate Respiratory Rate Blood Pressure 169/105 169/105 169/105 Blood Pressure [Right] O2 Sat by Pulse 100 100 100 Oximetry 10/22/16 10/22/16 10/22/16 10:37 10:39 10:41 Temperature Pulse Rate Respiratory Rate Blood Pressure 169/105 169/105 169/105 Blood Pressure [Right] O2 Sat by Pulse 100 100 100 Oximetry 10/22/16 10/22/16 10/22/16 10:43 10:45 10:47 Temperature Pulse Rate Respiratory Rate Blood Pressure 169/105 169/105 157/137 Blood Pressure [Right] O2 Sat by Pulse 100 100 100 Oximetry 10/22/16 10/22/16 10/22/16 10:49 10:51 10:53 Temperature Pulse Rate Respiratory Rate Blood Pressure 157/137 157/137 157/137 Blood Pressure [Right] O2 Sat by Pulse 100 100 100 Oximetry 10/22/16 10/22/16 10/22/16 10:55 10:57 10:59 Temperature Pulse Rate Respiratory Rate Blood Pressure 157/137 157/137 157/137 Blood Pressure [Right] O2 Sat by Pulse 100 100 100 Oximetry 10/22/16 10/22/16 10/22/16 11:00 11:01 11:03 Temperature Pulse Rate Respiratory Rate Blood Pressure 170/101 170/101 170/101 Blood Pressure [Right] O2 Sat by Pulse 100 100 100 Oximetry 10/22/16 10/22/16 10/22/16 11:05 11:07 11:09 Temperature Pulse Rate Respiratory Rate Blood Pressure 170/101 170/101 170/101 Blood Pressure [Right] O2 Sat by Pulse 100 100 100 Oximetry 10/22/16 10/22/16 10/22/16 11:11 11:13 11:15 Temperature Pulse Rate Respiratory Rate Blood Pressure 170/101 170/101 170/101 Blood Pressure [Right] O2 Sat by Pulse 100 100 100 Oximetry 10/22/16 10/22/16 10/22/16 11:17 11:19 11:21 Temperature Pulse Rate Respiratory Rate Blood Pressure 170/101 170/101 170/101 Blood Pressure [Right] O2 Sat by Pulse 100 100 100 Oximetry 10/22/16 10/22/16 10/22/16 11:23 11:25 11:27 Temperature Pulse Rate Respiratory Rate Blood Pressure 170/101 170/101 170/101 Blood Pressure [Right] O2 Sat by Pulse 100 100 100 Oximetry ED Medical Decision Making - Lab Data Result diagrams: 10/22/16 06:56 10/22/16 06:56 - Medical Decision Making DISCUSS WITH DR GARCIA FROM OB STATED THAT HE IS COMING TO SEE THE PATIENT. I GIVE HYDRALAZINE FOR BP CONTROL. DR GARCIA CAME TO SEE THE PATIENT STATED THAT THE PATIENT CAN BE DISCHARGE HOME AND TO FOLLOW UP WITH HIM IN HIS OFFICE. ADVISED TO GIVE METHERGINE PO. WILL GIVE BP MEDS Critical care attestation.: If time is entered above; I have spent that time in minutes in the direct care of this critically ill patient, excluding procedure time. ED Disposition Clinical Impression: Vaginal bleeding before 22 weeks gestation, demise before 20 weeks with retention of fetus Disposition: DC-01 TO HOME OR SELFCARE Is pt being admited?: No Condition: Stable Instructions: Spontaneous Miscarriage (ED) Prescriptions: hydrALAZINE [Apresoline TAB] 10 mg PO Q8H #30 tablet Methylergonovine [Methergine] 0.2 mg PO Q8HR #30 tablet Ondansetron [Zofran Odt] 4 mg PO Q8HR PRN #14 tab.rapdis PRN Reason: Vomiting traMADol [Ultram 50 MG tab] 50 mg PO Q4HR PRN #14 tablet PRN Reason: Pain Referrals: PRIMARY CARE,MD [Primary Care Provider] - 3-5 Days
[2016-10-22] MEDS ORDERED: NACL 0.9% 1000 ML 1,000 ML IV ONE (09:45)
[2016-10-22 12:17] VITALS: BP 179/104
--- NOTE | 2016-10-22 12:49 | Consultation ---
History of Present Illness Consult date: 10/22/16 Requesting physician: TAVO DAVIS Reason for consult: early problem (spontaneous ) History of present illness: Patient presented to the emergency room due to continue her on vaginal spotting with bleeding. Patient previously was seen in the ED on 10/04/2016 for threatened . Patient at that time had ultrasound revealed a pole with the heart tones also with a subchorionic hemorrhage. This is a repeat ultrasound only showed an irregular gestational sac with no pole present consistent with some spontaneous process course. Patient presently without any pain or heavy vaginal bleeding she is having elevated blood pressures but denies any headache or visual disturbances. Patient said her previous spontaneous abortions or were managed expectantly with medication and after informed of the ultrasound finding she desires to have expectant management for this. Patient does understand option of D&C but declined an operation at this time. Past History Past Medical History: hypertension Past Surgical History: breast surgery (biopsies some 42 on each breast), section, D&C (for elective abortions), other (carpal:) - Obstetrical History : 8 Para: 1 Hx # Term Pregnancies: 1 Number of Pregnancies: 0 Spontaneous Abortions: 2 Induced : 4 Number of Living Children: 1 Medications and Allergies Allergies Allergy/AdvReac Type Severity Reaction Status Date / Time codeine Allergy Rash Verified 10/04/16 10:28 Home Medications Medication Instructions Recorded Confirmed Last Taken Type Labetalol [Normodyne TAB] 100 mg PO BID #14 tablet 10/04/16 10/22/16 10/22/16 Rx Methylergonovine [Methergine] 0.2 mg PO Q8HR #30 tablet 10/22/16 Unknown Rx Ondansetron [Zofran Odt] 4 mg PO Q8HR PRN #14 tab.rapdis 10/22/16 Unknown Rx hydrALAZINE [Apresoline TAB] 10 mg PO Q8H #30 tablet 10/22/16 Unknown Rx traMADol [Ultram 50 MG tab] 50 mg PO Q4HR PRN #14 tablet 10/22/16 Unknown Rx - Vital Signs Vital signs: Vital Signs Temp Pulse Resp BP Pulse Ox 99.0 F 79 18 159/119 100 10/22/16 06:33 10/22/16 06:33 10/22/16 06:33 10/22/16 06:33 10/22/16 06:33 Temp Pulse Resp BP Pulse Ox 99.0 F 80 18 179/104 100 10/22/16 06:33 10/22/16 09:39 10/22/16 09:36 10/22/16 12:01 10/22/16 12:01 - Physical Exam Breasts: Positive: deferred Cardiovascular: Regular rate Lungs: Positive: Normal air movement Abdomen: Positive: normal appearance, soft Genitourinary (Female): Positive: other (patient does complaint of spotting) Results Result Diagrams: 10/22/16 06:56 10/22/16 06:56 Abnormal lab results 10/22/16 10/22/16 10/22/16 Range/Units 06:56 06:56 06:56 MCH 27 L (28-32) pg RDW 17.3 H (13.2-15.2) % Lymph % (Auto) 35.5 H (13.4-35.0) % [place] % (Auto) 9.4 H (0.0-7.3) % Creatinine 0.6 L (0.7-1.2) mg/dL Albumin 3.8 L (3.9-5) g/dL HCG, Quant 54747 H (0-4) mIU/mL All other labs normal. Assessment and Plan - Patient Problems (1) Spontaneous Status: Acute Plan to address problem: Patient is to follow-up in office in 1-2 weeks. Patient given my card information office. Patient called she has severe bleeding or cramping or changes her mind about D&C. (2) Hypertension Status: Acute Qualifiers: Hypertension type: essential hypertension Qualified Code(s): I10 - Essential (primary) hypertension Plan to address problem: This problem be addressed by the ED staff.
== END 2016-10-22 12:27 | disposition home or self-care (01) ==
LOC: ED 06:32
DX: O20.9 Hemorrhage in early pregnancy, unspecified (principal); Z3A.08 8 weeks gestation of pregnancy; I10 Essential (primary) hypertension
CPT/HCPCS: 36415; 76801; 76817; 80053; 81001; 83690; 84702; 84703; 85025; 86850; 86900; 86901; 96360; 96361; 99284; J7030

== ENCOUNTER 2017-05-21 10:41 | Emergency (ER) | payer SELFPAY ==
[2017-05-21] MEDS ORDERED: APRESOLINE IV ONE (11:14)
[2017-05-21] MEDS ORDERED: BENADRYL IV ONE (11:14)
[2017-05-21] MEDS ORDERED: ZOFRAN IV ONE (11:14)
[2017-05-21] MEDS ORDERED: SUBLIMAZE IV ONE (11:14)
--- NOTE | 2017-05-21 11:39 | Cat Scan Report ---
CT HEAD WITHOUT CONTRAST: 05/21/17 11:20 CLINICAL: Headache. TECHNIQUE: 2.5-mm noncontrast scans. COMPARISON:None FINDINGS: The ventricles and sulci are normal for age. No abnormal density. No mass or mass effect. No hemorrhage, edema or extra-axial collection. The sinuses are clear. Normal orbits and soft tissues. The calvarium and skull base are intact. IMPRESSION: Normal head CT.
--- NOTE | 2017-05-21 11:52 | Emergency Department Report ---
ED General Adult HPI - General Chief complaint: Headache Stated complaint: HEADACHE Time Seen by Provider: 05/21/17 11:13 Source: patient Mode of arrival: Ambulatory Limitations: No Limitations - History of Present Illness Initial comments: Pt is a 37 yo female who presents with headache x 4 days; pt states the pain is sharp with gradual onset and not the worse of her life. Pt denied any neck stiffness, fever, toothache, sinus pain, visual changes, extremity or facial weakness or numbness. Pt denied any known family members with history aneurysm. -: Gradual Location: head Radiation: non-radiation Severity scale (0 -10): 8 Improves with: none Worsens with: none Associated Symptoms: denies: chest pain, nausea/vomiting, weakness Treatments Prior to Arrival: other (Tylenol ) - Related Data Previous Rx's Medication Instructions Recorded Last Taken Type Labetalol [Normodyne TAB] 100 mg PO BID #14 tablet 10/04/16 10/22/16 Rx Methylergonovine [Methergine] 0.2 mg PO Q8HR #30 tablet 10/22/16 Unknown Rx Ondansetron [Zofran Odt] 4 mg PO Q8HR PRN #14 tab.rapdis 10/22/16 Unknown Rx hydrALAZINE [Apresoline TAB] 10 mg PO Q8H #30 tablet 10/22/16 Unknown Rx traMADol [Ultram 50 MG tab] 50 mg PO Q4HR PRN #14 tablet 05/21/17 Unknown Rx Allergies Allergy/AdvReac Type Severity Reaction Status Date / Time codeine Allergy Rash Verified 10/04/16 10:28 ED Review of Systems ROS: Stated complaint: HEADACHE Other details as noted in HPI Constitutional: no symptoms reported Eyes: as per HPI. denies: eye pain, vision change ENT: denies: ear pain, throat pain, dental pain Respiratory: denies: shortness of breath Cardiovascular: denies: palpitations Endocrine: denies: increased hunger Gastrointestinal: denies: abdominal pain, nausea, vomiting Psychiatric: denies: auditory hallucinations, visual hallucinations, homicidal thoughts, suicidal thoughts Hematological/Lymphatic: denies: easy bruising ED Past Medical Hx - Past Medical History Previous Medical History?: Yes Hx Hypertension: Yes Hx Headaches / Migraines: No Additional medical history: preclampsia with other preg - Surgical History Hx Breast Surgery: Yes (Bilateral lumpectomy) Additional Surgical History: carpal tunnel repair L. - Social History Smoking Status: Current Every Day Smoker Substance Use Type: None - Medications Home Medications: Home Medications Medication Instructions Recorded Confirmed Last Taken Type Labetalol [Normodyne TAB] 100 mg PO BID #14 tablet 10/04/16 10/22/16 10/22/16 Rx Methylergonovine [Methergine] 0.2 mg PO Q8HR #30 tablet 10/22/16 Unknown Rx Ondansetron [Zofran Odt] 4 mg PO Q8HR PRN #14 tab.rapdis 10/22/16 Unknown Rx hydrALAZINE [Apresoline TAB] 10 mg PO Q8H #30 tablet 10/22/16 Unknown Rx traMADol [Ultram 50 MG tab] 50 mg PO Q4HR PRN #14 tablet 05/21/17 Unknown Rx ED Physical Exam - General Limitations: No Limitations General appearance: alert, in no apparent distress - Head Head exam: Present: atraumatic, normocephalic, normal inspection - Eye Eye exam: Present: normal appearance, PERRL, EOMI Pupils: Present: normal accommodation - ENT ENT exam: Present: normal exam, normal orophraynx, mucous membranes dry, mucous membranes moist - Neck Neck exam: Present: normal inspection. Absent: full ROM - Respiratory Respiratory exam: Present: normal lung sounds bilaterally. Absent: respiratory distress, rales, rhonchi, decreased breath sounds - Cardiovascular Cardiovascular Exam: Present: regular rate, normal rhythm, normal heart sounds - GI/Abdominal GI/Abdominal exam: Present: soft, normal bowel sounds. Absent: distended, tenderness - Extremities Exam Extremities exam: Present: normal inspection, full ROM, normal capillary refill - Neurological Exam Neurological exam: Present: alert, altered, oriented X3, CN II-XII intact, normal gait, motor sensory deficit - Expanded Neurological Exam Expanded Patient oriented to: Present: person, place, time Speech: Present: fluid speech Cranial nerves: EOM's Intact: Normal, Gag Reflex: Normal, Tongue Deviation: Normal, Nystagmus: Normal, Facial Sensation: Normal, Facial Palsy with Forehead Movement: Normal, Facial Palsy without Forehead Movement: Normal Best Eye Response (Burton): (4) open spontaneously Best Motor Response (Dorys): (6) obeys commands Best Verbal Response (Dorys): (5) oriented Burton Total: 15 - Psychiatric Psychiatric exam: Present: normal affect, normal mood, anxious. Absent: depressed - Skin Skin exam: Present: warm, dry ED Course Vital Signs 05/21/17 05/21/17 05/21/17 10:45 12:56 13:01 Temperature 98.6 F Pulse Rate 107 H Respiratory 16 Rate Blood Pressure 226/158 187/121 Blood Pressure [Right] O2 Sat by Pulse 99 99 98 Oximetry 05/21/17 05/21/17 05/21/17 13:10 13:15 13:30 Temperature Pulse Rate 92 H Respiratory Rate Blood Pressure 181/121 195/122 203/119 Blood Pressure [Right] O2 Sat by Pulse 100 99 Oximetry 05/21/17 13:43 Temperature 98.4 F Pulse Rate 104 H Respiratory 16 Rate Blood Pressure Blood Pressure 194/118 [Right] O2 Sat by Pulse 98 Oximetry ED Medical Decision Making - Medical Decision Making cephalgia, migraine,head injury .now 1247 pm Nurse just informed me that the pt had not received any of her meds yet and the vitals will be repeated after the pt has been treated. I changed the Fentanyl to Ketorolac. [id number]: Pt's bp still elevated; pt sleeping; will remedicate and reassess Critical care attestation.: If time is entered above; I have spent that time in minutes in the direct care of this critically ill patient, excluding procedure time. ED Disposition Clinical Impression: Headache Disposition: DC-01 TO HOME OR SELFCARE Condition: Stable Instructions: Acute Headache (ED) Additional Instructions: Return sooner if worse or if further concerns Be sure to follow up with your doctor or the referral given here Prescriptions: traMADol [Ultram 50 MG tab] 50 mg PO Q4HR PRN #14 tablet PRN Reason: Pain Referrals: [facility] [Outside] - 3-5 Days
[2017-05-21] MEDS ORDERED: TORADOL IV ONE (12:43)
--- NOTE | 2017-05-21 12:46 | Emergency Department Report ---
Chief Complaint: Headache Stated Complaint: HEADACHE Time Seen by Provider: 05/21/17 11:13 - HPI History of Present Illness: The patient is 37-year-old female presents for evaluation of headache. The patient has a history of high blood pressure. The patient reports constant headache for the past 4 days, achy in quality, moderate in severity. She reports compliance with labetalol. The patient denies fever, head injury, neck pain, neck stiffness, vision or hearing changes, smell or taste changes, paresthesias, facial drooping, slurred speech, seizure-like activity, urine or bowel incontinence or retention, or other focal neurological deficit. - Exam Vital Signs: Vital Signs 05/21/17 10:45 Temperature 98.6 F Pulse Rate 107 H Respiratory 16 Rate Blood Pressure 226/158 O2 Sat by Pulse 99 Oximetry MSE screening note: Focused history and physical exam performed. Due to findings the following was ordered: CT scan of the head is ordered as the patient has significantly elevated blood pressure with constant headache. ED Disposition for MSE Clinical Impression: Headache Disposition: DC-01 TO HOME OR SELFCARE Condition: Stable Instructions: Acute Headache (ED) Additional Instructions: Return sooner if worse or if further concerns Be sure to follow up with your doctor or the referral given here Prescriptions: traMADol [Ultram 50 MG tab] 50 mg PO Q4HR PRN #14 tablet PRN Reason: Pain Referrals: [facility] [Outside] - 3-5 Days
[2017-05-21] MEDS ORDERED: CATAPRES PO ONE (14:18)
[2017-05-21 17:32] VITALS: BP 157/103
== END 2017-05-21 17:27 | disposition home or self-care (01) ==
LOC: ED 10:41
DX: R51 Headache (principal); I10 Essential (primary) hypertension; F17.200 Nicotine dependence, unspecified, uncomplicated
CPT/HCPCS: 70450; 96374; 96375; 99284; J0360; J1200; J1885; J2405

== ENCOUNTER 2017-08-09 11:58 | Emergency (ER) | payer OTHER ==
--- NOTE | 2017-08-09 14:38 | Emergency Department Report ---
ED General Adult HPI - General Chief complaint: High BP Stated complaint: FACIAL SWELLING Time Seen by Provider: 08/09/17 14:09 Source: patient Mode of arrival: Ambulatory Limitations: No Limitations - History of Present Illness Initial comments: 24 hours of left upper dental pain with left facial swelling. Afebrile. Vision is concerned that she could have a another abscess. Has not had a chance to get to the dentist. Pain with chewing. No drainage noticed in her mouth. Denies taking any new medications. She also has not had her blood pressure medication in the past 24 hours. She did see her family doctor couple of days ago started her on Cozaar and Coreg. The patient has not had a chance to fill these prescriptions. Denies headache, chest pain, shortness of breath, dizziness changes, numbness, weakness. - Related Data Previous Rx's Medication Instructions Recorded Last Taken Type Labetalol [Normodyne TAB] 100 mg PO BID #14 tablet 10/04/16 10/22/16 Rx Methylergonovine [Methergine] 0.2 mg PO Q8HR #30 tablet 10/22/16 Unknown Rx Ondansetron [Zofran Odt] 4 mg PO Q8HR PRN #14 tab.rapdis 10/22/16 Unknown Rx hydrALAZINE [Apresoline TAB] 10 mg PO Q8H #30 tablet 10/22/16 Unknown Rx traMADol [Ultram 50 MG tab] 50 mg PO Q4HR PRN #14 tablet 05/21/17 Unknown Rx Penicillin Vk [Veetids TAB] 500 mg PO QID #50 tablet 08/09/17 Unknown Rx traMADol [Ultram 50 MG tab] 50 mg PO Q6HR PRN #6 tablet 08/09/17 Unknown Rx Allergies Allergy/AdvReac Type Severity Reaction Status Date / Time codeine Allergy Rash Verified 10/04/16 10:28 ED Review of Systems ROS: Stated complaint: FACIAL SWELLING Other details as noted in HPI Constitutional: denies: chills, fever Eyes: denies: eye pain, eye discharge, vision change ENT: dental pain, other (facial swelling). denies: ear pain, throat pain Respiratory: denies: cough, shortness of breath, wheezing Cardiovascular: denies: chest pain, palpitations Endocrine: no symptoms reported Gastrointestinal: denies: abdominal pain, nausea, diarrhea Genitourinary: denies: urgency, dysuria, discharge Musculoskeletal: denies: back pain, joint swelling, arthralgia Skin: denies: rash, lesions Neurological: denies: headache, weakness, paresthesias Psychiatric: denies: anxiety, depression Hematological/Lymphatic: denies: easy bleeding, easy bruising ED Past Medical Hx - Past Medical History Previous Medical History?: Yes Hx Hypertension: Yes Hx Headaches / Migraines: No Additional medical history: preclampsia with other preg - Surgical History Past Surgical History?: Yes Hx Breast Surgery: Yes (Bilateral lumpectomy) Additional Surgical History: carpal tunnel repair L. - Social History Smoking Status: Current Every Day Smoker Substance Use Type: None - Medications Home Medications: Home Medications Medication Instructions Recorded Confirmed Last Taken Type Labetalol [Normodyne TAB] 100 mg PO BID #14 tablet 10/04/16 10/22/16 10/22/16 Rx Methylergonovine [Methergine] 0.2 mg PO Q8HR #30 tablet 10/22/16 Unknown Rx Ondansetron [Zofran Odt] 4 mg PO Q8HR PRN #14 tab.rapdis 10/22/16 Unknown Rx hydrALAZINE [Apresoline TAB] 10 mg PO Q8H #30 tablet 10/22/16 Unknown Rx traMADol [Ultram 50 MG tab] 50 mg PO Q4HR PRN #14 tablet 05/21/17 Unknown Rx Penicillin Vk [Veetids TAB] 500 mg PO QID #50 tablet 08/09/17 Unknown Rx traMADol [Ultram 50 MG tab] 50 mg PO Q6HR PRN #6 tablet 08/09/17 Unknown Rx ED Physical Exam - General Limitations: No Limitations General appearance: alert, in no apparent distress - Head Head exam: Present: atraumatic, normocephalic - Eye Eye exam: Present: normal appearance - ENT ENT exam: Present: mucous membranes moist, other (tooth # 5,6 fractured with caries. no gingival fluctuance, trismus, dysphonia, uvular deviation, sublingual induration. Mild tender left facial swelling noted. ) - Neck Neck exam: Present: normal inspection - Respiratory Respiratory exam: Present: normal lung sounds bilaterally. Absent: respiratory distress - Cardiovascular Cardiovascular Exam: Present: regular rate, normal rhythm. Absent: systolic murmur, diastolic murmur, rubs, gallop - GI/Abdominal GI/Abdominal exam: Present: soft, normal bowel sounds - Extremities Exam Extremities exam: Present: normal inspection - Back Exam Back exam: Present: normal inspection - Neurological Exam Neurological exam: Present: alert, oriented X3 - Psychiatric Psychiatric exam: Present: normal affect, normal mood - Skin Skin exam: Present: warm, dry, intact, normal color. Absent: rash ED Course Vital Signs 08/09/17 08/09/17 12:04 13:35 Temperature 99.0 F Pulse Rate 82 79 Respiratory 16 16 Rate Blood Pressure 204/146 Blood Pressure 188/129 [Right] O2 Sat by Pulse 99 99 Oximetry ED Medical Decision Making - Medical Decision Making There is 7-year-old female past medical history of hypertension and presents to the ER with high blood pressure and left-sided facial swelling and dental pain. The pain Began 24 Hours Ago. No Evidence of Gingival Fluctuance. Likely Patient Has a Periapical Abscess. She Is Working on Getting into a Dentist for Evaluation. Patient Has No Evidence of ocular involvement. She'll be started on penicillin and given 48 hours of tramadol for pain relief. Patient's blood pressure was significant elevated on arrival. Likely this is due to medication noncompliance and it isn't pain. She took her labetalol/ hydralazine while in the ER. Her blood pressure as documented. The patient has remained asymptomatic. I stressed her the importance of being compliant with her blood pressure medication. She is going later today to get her Cozaar and Coreg filled. I gave the patient a dose of a cozaar in the ER. No indication for emergent lowering of her blood pressure this point time. - Differential Diagnosis gaby's angina, rpa, seating captain, periapical abscess, facial cellulitis, ICH, HTN Critical care attestation.: If time is entered above; I have spent that time in minutes in the direct care of this critically ill patient, excluding procedure time. ED Disposition Clinical Impression: Periapical abscess, Hypertension Disposition: TO HOME OR SELFCARE Is pt being admited?: No Condition: Stable Instructions: Hypertension (ED), Dental Abscess (ED) Additional Instructions: Please take your antibiotics as prescribed. Make sure that you get your new blood pressure medications filled. If you develop a headache, chest pain, shortness of breath, vision changes, numbness or weakness in your arms/legs, return to the ER immediately for reevaluation. Follow up with your dentist as soon as possible. Prescriptions: Penicillin Vk [Veetids TAB] 500 mg PO QID #50 tablet traMADol [Ultram 50 MG tab] 50 mg PO Q6HR PRN #6 tablet PRN Reason: Pain
[2017-08-09] MEDS ORDERED: COZAAR PO ONE (14:49)
[2017-08-09 15:14] VITALS: BP 175/121
== END 2017-08-09 15:36 | disposition home or self-care (01) ==
LOC: ED 11:58
DX: K04.7 Periapical abscess without sinus (principal); I10 Essential (primary) hypertension; F17.200 Nicotine dependence, unspecified, uncomplicated; Z88.6 Allergy status to analgesic agent
CPT/HCPCS: 99282

== ENCOUNTER 2017-09-05 09:55 | Inpatient (IN) | payer OTHER ==
[2017-09-05] MEDS ORDERED: APRESOLINE IV ONE ×2 (10:12→11:41)
[2017-09-05] MEDS ORDERED: NORMODYNE IV ONE ×2 (10:48→13:42)
[2017-09-05 11:13] LABS: Basophils # (Auto) 0.1 K/mm3 (0.0-0.1); Basophils % (Auto) 1.1 % (0.0-1.8); Eosinophils # (Auto) 0.2 K/mm3 (0.0-0.4); Eosinophils % (Auto) 3.1 % (0.0-4.3); Hematocrit 38.7 % (30.3-42.9); Hemoglobin 13.4 gm/dl (10.1-14.3); Lymphocytes # (Auto) 1.9 K/mm3 (1.2-5.4); Lymphocytes % (Auto) 27.3 % (13.4-35.0); Mean Corpuscular HGB Conc 35 % (30-34); Mean Corpuscular Hemoglobin 28 pg (28-32); Mean Corpuscular Volume 80 fl (79-97); Monocytes # (Auto) 0.5 K/mm3 (0.0-0.8); Monocytes % (Auto) 7.4 % (0.0-7.3); Platelet Count 248 K/mm3 (140-440); Red Blood Count 4.83 M/mm3 (3.65-5.03); Red Cell Distribution Width 16.2 % (13.2-15.2)
[2017-09-05 11:33] LABS: Creatine Kinase MB 1.6 ng/mL (0.0-4.0)
[2017-09-05 11:34] LABS: Alanine Aminotransferase 5 units/L (7-56); BUN/Creatinine Ratio 11; Blood Urea Nitrogen 10 mg/dL (7-17); Calcium 9.1 mg/dL (8.4-10.2); Hemolysis Index 8
[2017-09-05 11:43] LABS: Bilirubin,Urine NEG (Negative); Blood,Urine NEG (Negative); Color,Urine Yellow (Yellow); Mucus,Urine FEW /HPF; Protein,Urine <15 mg/dL mg/dL (Negative); Urobilinogen,Urine < 2.0 mg/dL (<2.0)
[2017-09-05 11:46] LABS: Bilirubin,Direct < 0.2 mg/dL (0-0.2)
--- NOTE | 2017-09-05 11:48 | Emergency Department Report ---
ED General Adult HPI - General Chief complaint: High BP Stated complaint: /SPOTTING/ABDOMINAL PAIN Time Seen by Provider: 09/05/17 10:38 Source: patient Mode of arrival: Ambulatory Limitations: No Limitations - History of Present Illness Initial comments: 37-year-old female with spotting on Monday. She did a home test on Monday and repeated it on Monday. It was positive. She does not currently complain of lower abdominal pain but has had some cramping prior. She does not have a current [employer] doctor. However she has previously seen Dr. Dalal when she had a demise. She has a history of hypertension. He states that she is taking losartan and carvedilol and thinks that a centimeter then with codeine is a blood pressure medicine also. She does not complain of shortness of breath cough or chest discomfort. She comes to the emergency department for further evaluation of her uncontrolled hypertension. She states she is compliant with her medicines. She states that she is 6 with 1 live child. -: Gradual, days(s) Location: abdomen (had some lower abdominal discomfort but resolved now) Consistency: now resolved Improves with: none Worsens with: none Associated Symptoms: denies other symptoms - Related Data Previous Rx's Medication Instructions Recorded Last Taken Type Labetalol [Normodyne TAB] 100 mg PO BID #14 tablet 10/04/16 10/22/16 Rx Methylergonovine [Methergine] 0.2 mg PO Q8HR #30 tablet 10/22/16 Unknown Rx Ondansetron [Zofran Odt] 4 mg PO Q8HR PRN #14 tab.rapdis 10/22/16 Unknown Rx hydrALAZINE [Apresoline TAB] 10 mg PO Q8H #30 tablet 10/22/16 Unknown Rx traMADol [Ultram 50 MG tab] 50 mg PO Q4HR PRN #14 tablet 05/21/17 Unknown Rx Penicillin Vk [Veetids TAB] 500 mg PO QID #50 tablet 08/09/17 Unknown Rx traMADol [Ultram 50 MG tab] 50 mg PO Q6HR PRN #6 tablet 08/09/17 Unknown Rx Allergies Allergy/AdvReac Type Severity Reaction Status Date / Time codeine Allergy Rash Verified 09/05/17 10:05 ED Review of Systems ROS: Stated complaint: /SPOTTING/ABDOMINAL PAIN Other details as noted in HPI Constitutional: denies: chills, fever Eyes: denies: eye pain, eye discharge, vision change ENT: denies: ear pain, throat pain Respiratory: denies: cough, shortness of breath, wheezing Cardiovascular: denies: chest pain, palpitations Endocrine: no symptoms reported Gastrointestinal: abdominal pain. denies: nausea, diarrhea Genitourinary: abnormal menses (last normal period was in June 2 menses in July spotting 2 days ago). denies: urgency, dysuria, discharge Musculoskeletal: denies: back pain, joint swelling, arthralgia Skin: denies: rash, lesions Neurological: denies: headache, weakness, paresthesias Psychiatric: denies: anxiety, depression Hematological/Lymphatic: denies: easy bleeding, easy bruising ED Past Medical Hx - Past Medical History Hx Hypertension: Yes Hx Headaches / Migraines: No Additional medical history: preclampsia with other preg - Surgical History Hx Breast Surgery: Yes (Bilateral lumpectomy) Additional Surgical History: carpal tunnel repair L. - Social History Smoking Status: Never Smoker Substance Use Type: None - Medications Home Medications: Home Medications Medication Instructions Recorded Confirmed Last Taken Type Labetalol [Normodyne TAB] 100 mg PO BID #14 tablet 10/04/16 10/22/16 10/22/16 Rx Methylergonovine [Methergine] 0.2 mg PO Q8HR #30 tablet 10/22/16 Unknown Rx Ondansetron [Zofran Odt] 4 mg PO Q8HR PRN #14 tab.rapdis 10/22/16 Unknown Rx hydrALAZINE [Apresoline TAB] 10 mg PO Q8H #30 tablet 10/22/16 Unknown Rx traMADol [Ultram 50 MG tab] 50 mg PO Q4HR PRN #14 tablet 05/21/17 Unknown Rx Penicillin Vk [Veetids TAB] 500 mg PO QID #50 tablet 08/09/17 Unknown Rx traMADol [Ultram 50 MG tab] 50 mg PO Q6HR PRN #6 tablet 08/09/17 Unknown Rx ED Physical Exam - General Limitations: No Limitations General appearance: alert, in no apparent distress - Head Head exam: Present: atraumatic, normocephalic - Eye Eye exam: Present: normal appearance - ENT ENT exam: Present: mucous membranes moist - Neck Neck exam: Present: normal inspection. Absent: tenderness, meningismus - Respiratory Respiratory exam: Present: normal lung sounds bilaterally. Absent: respiratory distress - Cardiovascular Cardiovascular Exam: Present: regular rate, normal rhythm. Absent: systolic murmur, diastolic murmur, rubs, gallop - GI/Abdominal GI/Abdominal exam: Present: soft, normal bowel sounds. Absent: distended, tenderness, guarding, rebound, rigid - Extremities Exam Extremities exam: Present: normal inspection - Back Exam Back exam: Present: normal inspection - Neurological Exam Neurological exam: Present: alert, oriented X3, CN II-XII intact. Absent: motor sensory deficit - Psychiatric Psychiatric exam: Present: normal affect, normal mood - Skin Skin exam: Present: warm, dry, intact, normal color. Absent: rash ED Course Vital Signs 09/05/17 09/05/17 09/05/17 10:05 10:10 10:25 Temperature 98.1 F Pulse Rate 88 80 Respiratory 16 Rate Blood Pressure 225/140 217/129 217/129 O2 Sat by Pulse 100 Oximetry 09/05/17 09/05/17 10:30 11:18 Temperature Pulse Rate 90 103 H Respiratory 24 Rate Blood Pressure 186/115 199/114 O2 Sat by Pulse 100 Oximetry - Reevaluation(s) Reevaluation #1: Patient's blood pressure is responding to hydralazine and labetalol. She will have to discontinue ARB. She is admitted to the hospitalist service by Dr. Baxter for further care and evaluation. Consult Dr. Dalal. Ultrasound is pending 09/05/17 11:49 ED Medical Decision Making - Lab Data Result diagrams: 09/05/17 10:25 09/05/17 10:25 Laboratory Results - last 24 hr 09/05/17 09/05/17 09/05/17 10:25 10:25 11:20 WBC 6.9 RBC 4.83 Hgb 13.4 Hct 38.7 MCV 80 MCH 28 MCHC 35 H RDW 16.2 H Plt Count 248 Lymph % (Auto) 27.3 Dale % (Auto) 7.4 H Eos % (Auto) 3.1 Baso % (Auto) 1.1 Lymph # 1.9 Dale # 0.5 Eos # 0.2 Baso # 0.1 Seg Neutrophils % 61.1 Seg Neutrophils # 4.2 Sodium 140 Potassium 3.5 L Chloride 104.7 Carbon Dioxide 25 Anion Gap 14 BUN 10 Creatinine 0.9 Estimated GFR > 60 BUN/Creatinine Ratio 11 Glucose 92 Calcium 9.1 Magnesium 2.00 Total Bilirubin 0.90 Direct Bilirubin < 0.2 AST 9 ALT 5 L Alkaline Phosphatase 56 Total Creatine Kinase 43 CK-MB (CK-2) 1.6 CK-MB (CK-2) Rel Index 3.7 NT-Pro-B Natriuret Pep 856.7 H Total Protein 7.2 Albumin 4.0 Albumin/Globulin Ratio 1.3 Urine Color Yellow Urine Turbidity Clear Urine pH 5.0 Ur Specific [place] 1.013 Urine Protein <15 mg/dl Urine Glucose (UA) Neg Urine Ketones Neg Urine Blood Neg Urine Nitrite Neg Urine Bilirubin Neg Urine Urobilinogen < 2.0 Ur Leukocyte Esterase Neg Urine WBC (Auto) 1.0 Urine RBC (Auto) 1.0 U Epithel Cells (Auto) 5.0 Urine Mucus Few Urine Opiates Screen Urine Methadone Screen Ur Barbiturates Screen Ur Phencyclidine Scrn Ur Amphetamines Screen U Benzodiazepines Scrn Urine Cocaine Screen U Marijuana (THC) Screen Drugs of Abuse Note 09/05/17 11:20 WBC RBC Hgb Hct MCV MCH MCHC RDW Plt Count Lymph % (Auto) Dale % (Auto) Eos % (Auto) Baso % (Auto) Lymph # Dale # Eos # Baso # Seg Neutrophils % Seg Neutrophils # Sodium Potassium Chloride Carbon Dioxide Anion Gap BUN Creatinine Estimated GFR BUN/Creatinine Ratio Glucose Calcium Magnesium Total Bilirubin Direct Bilirubin AST ALT Alkaline Phosphatase Total Creatine Kinase CK-MB (CK-2) CK-MB (CK-2) Rel Index NT-Pro-B Natriuret Pep Total Protein Albumin Albumin/Globulin Ratio Urine Color Urine Turbidity Urine pH Ur Specific [place] Urine Protein Urine Glucose (UA) Urine Ketones Urine Blood Urine Nitrite Urine Bilirubin Urine Urobilinogen Ur Leukocyte Esterase Urine WBC (Auto) Urine RBC (Auto) U Epithel Cells (Auto) Urine Mucus Urine Opiates Screen Presumptive negative Urine Methadone Screen Presumptive negative Ur Barbiturates Screen Presumptive negative Ur Phencyclidine Scrn Presumptive negative Ur Amphetamines Screen Presumptive negative U Benzodiazepines Scrn Presumptive negative Urine Cocaine Screen Presumptive negative U Marijuana (THC) Screen Presumptive negative Drugs of Abuse Note Disclamer Critical care attestation.: If time is entered above; I have spent that time in minutes in the direct care of this critically ill patient, excluding procedure time. ED Disposition Clinical Impression: Uncontrolled hypertension Qualifiers: Weeks of gestation: less than 8 weeks Qualified Code(s): Z3A.01 - Less than 8 weeks gestation of Disposition: OP ADMIT IP TO THIS HOSP Is pt being admited?: Yes Does the pt Need Aspirin: No Condition: Stable Instructions: Hypertension (ED) Referrals: PRIMARY CAREMD [Primary Care Provider] - 3-5 Days Time of Disposition: 11:53
[2017-09-05 11:50] LABS: Amphetamine Screen,Urine PRESUMPTIVE NEGATIVE; Benzodiazepines Screen,Urine PRESUMPTIVE NEGATIVE; Cannabinoid Screen,Urine PRESUMPTIVE NEGATIVE; Cocaine Screen,Urine PRESUMPTIVE NEGATIVE; Methadone Screen,Urine PRESUMPTIVE NEGATIVE; Opiate Screen,Urine PRESUMPTIVE NEGATIVE
[2017-09-05 12:03] LABS: INR 0.99 (0.87-1.13)
[2017-09-05 12:04] LABS: Partial Thromboplastin Time 29.2 Sec. (24.2-36.6)
[2017-09-05] MEDS ORDERED: TYLENOL PO ONE (13:10)
[2017-09-05] MEDS ORDERED: BENADRYL ONE (13:55)
[2017-09-05] MEDS ORDERED: BENADRYL IV ONE (14:08)
[2017-09-05] MEDS ORDERED: CARDENE 50 MG in NACL 0.9% 250ML 230 ML IV SCH (15:00)
[2017-09-05] MEDS ORDERED: SODIUM CHLORIDE FLUSH SYRINGE 10 ML IV PRN (17:48)
--- NOTE | 2017-09-05 17:48 | History and Physical Report ---
History of Present Illness Date of examination: 09/05/17 Date of admission: 09/05/17 11:37 Medications and Allergies Allergies Allergy/AdvReac Type Severity Reaction Status Date / Time codeine Allergy Rash Verified 09/05/17 14:18 hydralazine Allergy Angioedema Verified 09/05/17 14:18 Home Medications Medication Instructions Recorded Confirmed Last Taken Type Carvedilol [Coreg] 12.5 mg PO DAILY 09/05/17 09/05/17 09/05/17 History Losartan [Cozaar] 100 mg PO QDAY 09/05/17 09/05/17 09/05/17 History Active Meds: Active Medications Nicardipine HCl 50 mg/ Sodium (Chloride) 250 mls @ 25 mls/hr IV TITR DIXIE; Protocol Last Titration: 09/05/17 17:06 Dose: 7.5 mg/hr, 37.5 mls/hr Exam - Constitutional Vitals: Temp Pulse Resp BP Pulse Ox 98.1 F 104 H 23 168/112 98 09/05/17 10:05 09/05/17 16:00 09/05/17 16:00 09/05/17 16:00 09/05/17 16:00 Results - Labs CBC & Chem 7: 09/05/17 10:25 09/05/17 10:25 Labs: Laboratory Last Values WBC 6.9 K/mm3 (4.5-11.0) 09/05/17 10:25 RBC 4.83 M/mm3 (3.65-5.03) 09/05/17 10:25 Hgb 13.4 gm/dl (10.1-14.3) 09/05/17 10:25 Hct 38.7 % (30.3-42.9) 09/05/17 10:25 MCV 80 fl (79-97) 09/05/17 10:25 MCH 28 pg (28-32) 09/05/17 10:25 MCHC 35 % (30-34) H 09/05/17 10:25 RDW 16.2 % (13.2-15.2) H 09/05/17 10:25 Plt Count 248 K/mm3 (140-440) 09/05/17 10:25 Lymph % (Auto) 27.3 % (13.4-35.0) 09/05/17 10:25 [place] % (Auto) 7.4 % (0.0-7.3) H 09/05/17 10:25 Eos % (Auto) 3.1 % (0.0-4.3) 09/05/17 10:25 Baso % (Auto) 1.1 % (0.0-1.8) 09/05/17 10:25 Lymph # 1.9 K/mm3 (1.2-5.4) 09/05/17 10:25 [place] # 0.5 K/mm3 (0.0-0.8) 09/05/17 10:25 Eos # 0.2 K/mm3 (0.0-0.4) 09/05/17 10:25 Baso # 0.1 K/mm3 (0.0-0.1) 09/05/17 10:25 Seg Neutrophils % 61.1 % (40.0-70.0) 09/05/17 10:25 Seg Neutrophils # 4.2 K/mm3 (1.8-7.7) 09/05/17 10:25 PT 13.6 Sec. (12.2-14.9) 09/05/17 11:05 INR 0.99 (0.87-1.13) 09/05/17 11:05 APTT 29.2 Sec. (24.2-36.6) 09/05/17 11:05 Sodium 140 mmol/L (137-145) 09/05/17 10:25 Potassium 3.5 mmol/L (3.6-5.0) L 09/05/17 10:25 Chloride 104.7 mmol/L (98-107) 09/05/17 10:25 Carbon Dioxide 25 mmol/L (22-30) 09/05/17 10:25 Anion Gap 14 mmol/L 09/05/17 10:25 BUN 10 mg/dL (7-17) 09/05/17 10:25 Creatinine 0.9 mg/dL (0.7-1.2) 09/05/17 10:25 Estimated GFR > 60 ml/min 09/05/17 10:25 BUN/Creatinine Ratio 11 % 09/05/17 10:25 Glucose 92 mg/dL (65-100) 09/05/17 10:25 Calcium 9.1 mg/dL (8.4-10.2) 09/05/17 10:25 Magnesium 2.00 mg/dL (1.7-2.3) 09/05/17 10:25 Total Bilirubin 0.90 mg/dL (0.1-1.2) 09/05/17 10:25 Direct Bilirubin < 0.2 mg/dL (0-0.2) 09/05/17 10:25 AST 9 units/L (5-40) 09/05/17 10:25 ALT 5 units/L (7-56) L 09/05/17 10:25 Alkaline Phosphatase 56 units/L (35-129) 09/05/17 10:25 Total Creatine Kinase 43 units/L (30-135) 09/05/17 10:25 CK-MB (CK-2) 1.6 ng/mL (0.0-4.0) 09/05/17 10:25 CK-MB (CK-2) Rel Index 3.7 (0-4) 09/05/17 10:25 NT-Pro-B Natriuret Pep 856.7 pg/mL (0-450) H 09/05/17 10:25 Total Protein 7.2 g/dL (6.3-8.2) 09/05/17 10:25 Albumin 4.0 g/dL (3.9-5) 09/05/17 10:25 Albumin/Globulin Ratio 1.3 % 09/05/17 10:25 HCG, Quant 5888 mIU/mL (0-4) H 09/05/17 11:05 Urine Color Yellow (Yellow) 09/05/17 11:20 Urine Turbidity Clear (Clear) 09/05/17 11:20 Urine pH 5.0 (5.0-7.0) 09/05/17 11:20 Ur Specific [place] 1.013 (1.003-1.030) 09/05/17 11:20 Urine Protein <15 mg/dl mg/dL (Negative) 09/05/17 11:20 Urine Glucose (UA) Neg mg/dL (Negative) 09/05/17 11:20 Urine Ketones Neg mg/dL (Negative) 09/05/17 11:20 Urine Blood Neg (Negative) 09/05/17 11:20 Urine Nitrite Neg (Negative) 09/05/17 11:20 Urine Bilirubin Neg (Negative) 09/05/17 11:20 Urine Urobilinogen < 2.0 mg/dL (<2.0) 09/05/17 11:20 Ur Leukocyte Esterase Neg (Negative) 09/05/17 11:20 Urine WBC (Auto) 1.0 /HPF (0.0-6.0) 09/05/17 11:20 Urine RBC (Auto) 1.0 /HPF (0.0-6.0) 09/05/17 11:20 U Epithel Cells (Auto) 5.0 /HPF (0-13.0) 09/05/17 11:20 Urine Mucus Few /HPF 09/05/17 11:20 Urine Opiates Screen Presumptive negative 09/05/17 11:20 Urine Methadone Screen Presumptive negative 09/05/17 11:20 Ur Barbiturates Screen Presumptive negative 09/05/17 11:20 Ur Phencyclidine Scrn Presumptive negative 09/05/17 11:20 Ur Amphetamines Screen Presumptive negative 09/05/17 11:20 U Benzodiazepines Scrn Presumptive negative 09/05/17 11:20 Urine Cocaine Screen Presumptive negative 09/05/17 11:20 U Marijuana (THC) Screen Presumptive negative 09/05/17 11:20 Drugs of Abuse Note Disclamer 09/05/17 11:20
[2017-09-05] MEDS ORDERED: APRESOLINE PO SCH ×2 (18:00→22:00)
[2017-09-05] MEDS ORDERED: LACTATED RINGERS 1,000 ML IV SCH (18:00)
[2017-09-05] MEDS: NORMODYNE PO SCH ×2 (18:44→22:42)
[2017-09-05] MEDS: MORPHINE IV PRN ×2 (18:45→22:42)
[2017-09-05] MEDS ORDERED: PEPCID PO SCH (22:00)
[2017-09-05 22:21] LABS: Free T4 (Free Thyroxine) 1.3 ng/dL (0.76-1.46)
[2017-09-05] MEDS: SODIUM CHLORIDE FLUSH SYRINGE 10 ML IV SCH (22:43)
--- NOTE | 2017-09-05 23:23 | Event Note ---
Date: 09/05/17 See history and physical and reports.--- Dictated
[2017-09-05] MEDS ORDERED: K-DUR PO ONE (23:32)
[2017-09-05] MEDS: PEPCID IV SCH (23:57)
[2017-09-06] MEDS ORDERED: NORMODYNE IV ONE (00:41)
[2017-09-06] MEDS: MORPHINE IV PRN ×3 (04:04→20:20)
[2017-09-06 04:17] LABS: Basophils % (Auto) 0.4 % (0.0-1.8); Hematocrit 38.4 % (30.3-42.9); Hemoglobin 12.6 gm/dl (10.1-14.3); Lymphocytes # (Auto) 0.8 K/mm3 (1.2-5.4); Lymphocytes % (Auto) 7.9 % (13.4-35.0); Mean Corpuscular HGB Conc 33 % (30-34); Mean Corpuscular Hemoglobin 27 pg (28-32); Mean Corpuscular Volume 81 fl (79-97); Monocytes # (Auto) 0.2 K/mm3 (0.0-0.8); Monocytes % (Auto) 2.5 % (0.0-7.3); Platelet Count 299 K/mm3 (140-440); Red Blood Count 4.75 M/mm3 (3.65-5.03); Red Cell Distribution Width 15.8 % (13.2-15.2)
[2017-09-06 04:36] LABS: Alanine Aminotransferase 7 units/L (7-56); Albumin 4.2 g/dL (3.9-5); BUN/Creatinine Ratio 14; Blood Urea Nitrogen 11 mg/dL (7-17); Calcium 9.7 mg/dL (8.4-10.2); Hemolysis Index 10
[2017-09-06] MEDS: NORMODYNE PO SCH ×3 (06:49→21:45)
[2017-09-06] MEDS ORDERED: NORMODYNE PO SCH (10:00)
[2017-09-06] MEDS: SODIUM CHLORIDE FLUSH SYRINGE 10 ML IV SCH ×2 (10:02→21:54)
[2017-09-06] MEDS: PEPCID IV SCH ×2 (10:11→21:53)
--- NOTE | 2017-09-06 10:53 | Event Note ---
Date: 09/06/17
--- NOTE | 2017-09-06 12:32 | History and Physical Report ---
CHIEF COMPLAINT: High blood pressure. HISTORY OF PRESENT ILLNESS: A 37-year-old female with falling on Monday and 5 weeks comes in for lower abdominal pain and some cramping. Also, high blood pressure. The patient had a demise recently. Has history of hypertension, taking losartan and carvedilol, which does not seem to be controlling the blood pressure. The patient says that she is compliant with her medications. The patient also has some swelling of the upper lip. PAST MEDICAL HISTORY: Significant for hypertension and headaches, preeclampsia with other pregnancies. PAST SURGICAL HISTORY: Bilateral lumpectomy, carpal tunnel surgery in left hand and . SOCIAL HISTORY: Does not smoke. No alcohol, no recreational drugs. FAMILY HISTORY: Hypertension. CURRENT MEDICATIONS: Losartan and Coreg. REVIEW OF SYSTEMS: Significant for high blood pressure and swelling of the upper lip. Otherwise, review of systems are negative. PHYSICAL EXAMINATION: GENERAL: Young female, cooperative during examination. VITAL SIGNS: Initial blood pressure was very high in the range of 185/118 and 205/123, which has come down to somewhat with Cardene drip. Her pulse is 102, temperature is respirations are 22. HEENT: Unremarkable. Pupils equal and reactive. NECK: Supple, no lymphadenopathy, no thyromegaly. LUNGS: Clear to auscultation and percussion. Good air entry. CARDIOVASCULAR: S1, S2 heard. No gallop, no murmur, no rub. Apical impulse in left fifth intercostal space and midclavicular line. ABDOMEN: Soft and benign. No hepatosplenomegaly. No guarding, no rigidity. Hernial orifices are normal. EXTREMITIES: Good pedal pulses. No pedal edema. LABORATORY DATA: Blood counts are normal. Potassium is slightly low at 3.5. Electrolytes are normal. BNP is 856. HCG is 5888. Drug screen is negative. Albumin is 4.0. Thyroid levels are normal. ASSESSMENT AND PLAN: 1. Hypertensive emergency. The patient was initiated on Cardene drip and in the meantime, the patient was also started on labetalol 300 q.8h. and hydralazine 25 q. 8h. Losartan was stopped because of the upper lip swelling and also Coreg was held because of the . The patient's blood pressure has come down while in the Emergency Room and the patient was downgraded to telemetry. 2. Threatened . The patient has intermittent bleeding. RN INVASIVE consult requested. The patient has a threatened . 2. Hypokalemia, supplemented. 3. Deep venous thrombosis prophylaxis. No heparin at this point. Only SCDs. The patient to be discharged on labetalol and hydralazine because of the future pregnancies. 4. Angioedema. IV Solu-Medrol given in the ER. The patient initiated on IV famotidine and IV Benadryl. MTDD
--- NOTE | 2017-09-06 12:50 | Ultrasound Report ---
Pelvic and transvaginal sonography: History: First trimester pain. Findings: Uterus measures 14.9 x 7.4 x 9.5 cm. Endometrial thickness 10 mm. Single cystic area in the endometrium probably gestational sac measuring 7 mm. This corresponds to 5 weeks and 3 days of gestation. No pole or yolk sac identified within the gestational sac. Multiple fibroids are noted within the uterus the largest measuring 3.5 x 2.9 x 3.3 cm. Right ovary 3.9 x 1.3 x 4.3 cm. Left ovary 2.8 x 2.4 x 4.1 cm . Impression: Cystic area within the uterus probably a gestational sac. Multiple fibroids.
[2017-09-06] MEDS: BENADRYL IV PRN ×2 (13:36→20:21)
--- NOTE | 2017-09-06 14:37 | Consultation ---
History of Present Illness Consult date: 09/06/17 Reason for consult: early problem Past History Past Medical History: hypertension Past Surgical History: D&C, other - Obstetrical History : 8 Para: 1 Hx # Term Pregnancies: 1 Number of Pregnancies: 0 Spontaneous Abortions: 5 Induced : 2 Number of Living Children: 1 Medications and Allergies Allergies Allergy/AdvReac Type Severity Reaction Status Date / Time codeine Allergy Rash Verified 09/05/17 14:18 hydralazine Allergy Angioedema Verified 09/05/17 14:18 Home Medications Medication Instructions Recorded Confirmed Last Taken Type Carvedilol [Coreg] 12.5 mg PO DAILY 09/05/17 09/05/17 09/05/17 History Losartan [Cozaar] 100 mg PO QDAY 09/05/17 09/05/17 09/05/17 History Active Meds: Active Medications Diphenhydramine HCl (Benadryl) 25 mg IV Q6H PRN PRN Reason: Rash Last Admin: 09/06/17 13:36 Dose: 25 mg Famotidine (Pepcid) 20 mg IV BID DIXIE Last Admin: 09/06/17 10:11 Dose: 20 mg Hydralazine HCl (Apresoline) 25 mg PO Q8HR DIXIE Nicardipine HCl 50 mg/ Sodium (Chloride) 250 mls @ 25 mls/hr IV TITR DIXIE; Protocol Last Titration: 09/05/17 22:15 Dose: 0 mg/hr, 0 mls/hr Lactated Ringer's (Lactated Ringers) 1,000 mls @ 42 mls/hr IV DIRECT DIXIE Last Admin: 09/05/17 22:15 Dose: 42 mls/hr Labetalol HCl (Normodyne) 300 mg PO Q8HR DIXIE Last Admin: 09/06/17 06:49 Dose: 300 mg Methylprednisolone Sodium Succinate (Solu-Medrol) 40 mg IV Q8HR DIXIE Last Admin: 09/06/17 06:50 Dose: 40 mg Morphine Sulfate (Morphine) 2 mg IV Q4H PRN PRN Reason: Pain, Moderate (4-6) Last Admin: 09/06/17 12:00 Dose: 2 mg Sodium Chloride (Sodium Chloride Flush Syringe 10 Ml) 10 ml IV BID DIXIE Last Admin: 09/06/17 10:02 Dose: 10 ml Sodium Chloride (Sodium Chloride Flush Syringe 10 Ml) 10 ml IV PRN PRN PRN Reason: LINE FLUSH - Vital Signs Vital signs: Vital Signs Temp Pulse Resp BP Pulse Ox 98.1 F 88 16 225/140 100 09/05/17 10:05 09/05/17 10:05 09/05/17 10:05 09/05/17 10:05 09/05/17 10:05 Temp Pulse Resp BP Pulse Ox 98.1 F 101 H 17 164/107 98 09/05/17 10:05 09/06/17 14:21 09/06/17 14:21 09/06/17 14:21 09/06/17 14:21 Results Result Diagrams: 09/06/17 03:53 09/06/17 03:53 Abnormal lab results 09/06/17 09/06/17 Range/Units 03:53 03:53 MCH 27 L (28-32) pg RDW 15.8 H (13.2-15.2) % Lymph % (Auto) 7.9 L (13.4-35.0) % Lymph # 0.8 L (1.2-5.4) K/mm3 Seg Neutrophils % 89.2 H (40.0-70.0) % Seg Neutrophils # 8.9 H (1.8-7.7) K/mm3 Sodium 136 L (137-145) mmol/L Carbon Dioxide 20 L (22-30) mmol/L Glucose 124 H (65-100) mg/dL All other labs normal. Assessment and Plan - Patient Problems (1) Current Visit: Yes Status: Acute Qualifiers: Weeks of gestation: less than 8 weeks Qualified Code(s): Z3A.01 - Less than 8 weeks gestation of Plan to address problem: Called to see patient admitted for uncontrolled hypertension. Patient on early ultrasound revealed a gestational sac cyst with approximately 5 weeks intrauterine . Patient has not started care but plans to have the discharge. Due to the patient's early gestational age and necessity of controlling her blood pressure, my advice is to treat her elevated blood pressure and we will follow up as outpatient once blood pressures controlled. (2) Uncontrolled hypertension Current Visit: Yes Status: Acute
--- NOTE | 2017-09-06 20:13 | Progress Note ---
Assessment and Plan - Patient Problems (1) Uncontrolled hypertension Current Visit: Yes Status: Acute Plan to address problem: Better controlled To discharge on Hydralazine and Labetolol No Losartan b/c of potential (2) Current Visit: Yes Status: Acute Qualifiers: Weeks of gestation: less than 8 weeks Qualified Code(s): Z3A.01 - Less than 8 weeks gestation of Plan to address problem: Some bleeding tank charger consult appreciated (3) DVT prophylaxis Current Visit: Yes Status: Acute Plan to address problem: only SCD's Subjective Date of service: 09/06/17 Principal diagnosis: Htn Emergency Interval history: Sx better Objective - Constitutional Vitals: Vital Signs - 12hr 09/06/17 09/06/17 09/06/17 08:30 08:41 08:51 Temperature Pulse Rate Respiratory Rate Blood Pressure 181/111 159/101 159/101 Blood Pressure 153/101 [Left] O2 Sat by Pulse 97 99 99 Oximetry 09/06/17 09/06/17 09/06/17 09:01 09:11 09:21 Temperature Pulse Rate Respiratory Rate Blood Pressure 159/101 159/101 159/101 Blood Pressure [Left] O2 Sat by Pulse 98 97 99 Oximetry 09/06/17 09/06/17 09/06/17 09:35 10:04 10:11 Temperature Pulse Rate Respiratory Rate Blood Pressure 173/104 173/104 Blood Pressure 174/104 [Left] O2 Sat by Pulse 100 97 Oximetry 09/06/17 09/06/17 09/06/17 10:21 10:31 10:41 Temperature Pulse Rate Respiratory Rate Blood Pressure 173/104 173/104 173/104 Blood Pressure [Left] O2 Sat by Pulse 99 99 98 Oximetry 09/06/17 09/06/17 09/06/17 10:51 11:00 11:11 Temperature Pulse Rate Respiratory Rate Blood Pressure 173/104 151/98 151/98 Blood Pressure [Left] O2 Sat by Pulse 99 98 98 Oximetry 09/06/17 09/06/17 09/06/17 11:21 11:31 11:37 Temperature Pulse Rate 88 Respiratory 17 Rate Blood Pressure 151/98 151/98 Blood Pressure 158/98 [Left] O2 Sat by Pulse 99 99 99 Oximetry 09/06/17 09/06/17 09/06/17 11:41 11:51 12:05 Temperature Pulse Rate Respiratory Rate Blood Pressure 151/98 151/98 151/98 Blood Pressure [Left] O2 Sat by Pulse 99 99 98 Oximetry 09/06/17 09/06/17 09/06/17 12:11 12:21 12:31 Temperature Pulse Rate Respiratory Rate Blood Pressure 151/98 151/98 151/98 Blood Pressure [Left] O2 Sat by Pulse 99 98 97 Oximetry 09/06/17 09/06/17 09/06/17 12:41 12:51 13:00 Temperature Pulse Rate Respiratory Rate Blood Pressure 151/98 151/98 158/89 Blood Pressure [Left] O2 Sat by Pulse 97 97 94 Oximetry 09/06/17 09/06/17 09/06/17 13:11 13:21 13:30 Temperature Pulse Rate Respiratory Rate Blood Pressure 158/89 158/89 Blood Pressure [Left] O2 Sat by Pulse 98 99 99 Oximetry 09/06/17 09/06/17 09/06/17 13:39 13:40 13:50 Temperature Pulse Rate 102 H Respiratory 17 Rate Blood Pressure 158/89 158/89 Blood Pressure 158/89 [Left] O2 Sat by Pulse 99 98 99 Oximetry 09/06/17 09/06/17 09/06/17 14:00 14:10 14:20 Temperature Pulse Rate Respiratory Rate Blood Pressure 164/107 164/107 164/107 Blood Pressure [Left] O2 Sat by Pulse 97 99 97 Oximetry 09/06/17 09/06/17 09/06/17 14:21 14:33 15:17 Temperature Pulse Rate 101 H 101 H 131 H Respiratory 17 21 Rate Blood Pressure 164/101 164/107 Blood Pressure 164/107 [Left] O2 Sat by Pulse 98 Oximetry 09/06/17 09/06/17 09/06/17 15:21 15:31 15:41 Temperature Pulse Rate 70 71 70 Respiratory 17 25 H 9 L Rate Blood Pressure 164/107 147/93 147/93 Blood Pressure [Left] O2 Sat by Pulse 98 98 98 Oximetry 09/06/17 09/06/17 09/06/17 15:51 16:00 16:11 Temperature Pulse Rate 75 Respiratory 7 L Rate Blood Pressure 147/93 137/90 137/90 Blood Pressure [Left] O2 Sat by Pulse 98 97 98 Oximetry 09/06/17 09/06/17 16:21 16:32 Temperature 98.2 F Pulse Rate 92 H Respiratory 18 Rate Blood Pressure 137/90 Blood Pressure 163/94 [Left] O2 Sat by Pulse 99 100 Oximetry General appearance: Present: no acute distress, well-nourished - EENT Eyes: PERRL, EOM intact ENT: hearing intact, clear oral mucosa Ears: bilateral: normal - Neck Neck: supple, normal ROM - Respiratory Respiratory effort: normal Respiratory: bilateral: CTA - Breasts Breasts: normal - Cardiovascular Heart rate: 78 Rhythm: regular Heart Sounds: Present: S1 & S2. Absent: gallop, rub Extremities: no ischemia, pulses intact, No edema, normal color, Full ROM - Gastrointestinal General gastrointestinal: Present: soft, non-tender, non-distended, normal bowel sounds - Genitourinary Female genitourinary: normal - Integumentary Integumentary: clear, warm, dry - Musculoskeletal Musculoskeletal: 1, strength equal bilaterally - Neurologic Neurologic: moves all extremities - Psychiatric Psychiatric: memory intact, appropriate mood/affect, intact judgment & insight - Labs CBC & Chem 7: 09/06/17 03:53 09/06/17 03:53 Labs: Abnormal lab results 09/06/17 09/06/17 Range/Units 03:53 03:53 MCH 27 L (28-32) pg RDW 15.8 H (13.2-15.2) % Lymph % (Auto) 7.9 L (13.4-35.0) % Lymph # 0.8 L (1.2-5.4) K/mm3 Seg Neutrophils % 89.2 H (40.0-70.0) % Seg Neutrophils # 8.9 H (1.8-7.7) K/mm3 Sodium 136 L (137-145) mmol/L Carbon Dioxide 20 L (22-30) mmol/L Glucose 124 H (65-100) mg/dL
[2017-09-07] MEDS: NORMODYNE PO SCH ×3 (06:01→22:10)
[2017-09-07] MEDS: SODIUM CHLORIDE FLUSH SYRINGE 10 ML IV SCH ×2 (09:32→22:13)
[2017-09-07] MEDS: PEPCID IV SCH (09:32)
[2017-09-07] MEDS: MORPHINE IV PRN ×3 (09:32→17:18)
[2017-09-07] MEDS: BENADRYL IV PRN ×2 (09:33→19:52)
--- NOTE | 2017-09-07 16:33 | Progress Note ---
Assessment and Plan - Patient Problems (1) Uncontrolled hypertension Current Visit: Yes Status: Acute Plan to address problem: Still high To discharge on [place] and Labetolol No Losartan b/c of potential (2) Current Visit: Yes Status: Acute Qualifiers: Weeks of gestation: less than 8 weeks Qualified Code(s): Z3A.01 - Less than 8 weeks gestation of Plan to address problem: Some bleeding senior safety support manager consult appreciated reconsult for threatened (3) Angioedema Current Visit: Yes Status: Acute Qualifiers: Encounter type: initial encounter Qualified Code(s): T78.3XXA - Angioneurotic edema, initial encounter Plan to address problem: Mild-Benadryl and Famotidine (4) DVT prophylaxis Current Visit: Yes Status: Acute Plan to address problem: only SCD's Subjective Date of service: 09/07/17 Principal diagnosis: Htn Emergency Interval history: Sx better Recurrence of vaginal bleeding Objective - Constitutional Vitals: Vital Signs - 12hr 09/07/17 09/07/17 09/07/17 04:48 05:00 09:32 Pulse Rate 88 85 Respiratory 16 20 Rate Blood Pressure 152/94 O2 Sat by Pulse 100 Oximetry 09/07/17 09/07/17 13:41 13:42 Pulse Rate 91 H Respiratory 20 Rate Blood Pressure 154/93 O2 Sat by Pulse Oximetry General appearance: Present: no acute distress, well-nourished - EENT Eyes: PERRL, EOM intact ENT: hearing intact, clear oral mucosa Ears: bilateral: normal - Neck Neck: supple, normal ROM - Respiratory Respiratory effort: normal Respiratory: bilateral: CTA - Breasts Breasts: normal - Cardiovascular Rhythm: regular Heart Sounds: Present: S1 & S2. Absent: gallop, rub Extremities: pulses intact, No edema, normal color, Full ROM - Gastrointestinal General gastrointestinal: Present: soft, non-tender, non-distended, normal bowel sounds - Genitourinary Female genitourinary: normal - Integumentary Integumentary: clear, warm, dry - Musculoskeletal Musculoskeletal: 1, strength equal bilaterally - Neurologic Neurologic: moves all extremities - Psychiatric Psychiatric: memory intact, appropriate mood/affect, intact judgment & insight - Labs CBC & Chem 7: 09/06/17 03:53 09/06/17 03:53
[2017-09-07] MEDS: BENADRYL PO SCH (17:17)
[2017-09-07] MEDS: ALDOMET PO SCH ×2 (18:00→22:09)
--- NOTE | 2017-09-07 19:16 | Progress Note ---
Assessment and Plan Patient alert, awake and resting on room air.No complaint of chest pain or shortness of breath. - Patient Problems (1) Angioedema Current Visit: Yes Status: Acute Qualifiers: Encounter type: initial encounter Qualified Code(s): T78.3XXA - Angioneurotic edema, initial encounter Plan to address problem: No complaint of chest pain or shortness of breath at this time. Patient is on I/V solumedral Patient is getting benedril also. (2) Current Visit: Yes Status: Acute Qualifiers: Weeks of gestation: less than 8 weeks Qualified Code(s): Z3A.01 - Less than 8 weeks gestation of Plan to address problem: Management as per [employer] TECHNICAL MANAGER. (3) Uncontrolled hypertension Current Visit: Yes Status: Acute Plan to address problem: Management as per primary care. Subjective Date of service: 09/07/17 Principal diagnosis: Htn Emergency Interval history: Patient alert, awake and resting on room air.No complaint of chest pain or shortness of breath. Objective Vital Signs - 12hr 09/07/17 09/07/17 09/07/17 07:37 09:32 10:00 Temperature 98.8 F Pulse Rate Respiratory 16 20 Rate Respiratory 20 Rate [Abdomen] Blood Pressure 176/99 09/07/17 09/07/17 09/07/17 13:41 13:42 17:18 Temperature Pulse Rate 91 H Respiratory 20 20 Rate Respiratory Rate [Abdomen] Blood Pressure 154/93 Constitutional: no acute distress, alert Eyes: non-icteric Neck: supple, no lymphadenopathy Effort: normal Ascultation: Bilateral: clear Cardiovascular: regular rate and rhythm Gastrointestinal: normoactive bowel sounds, soft, non-tender Integumentary: normal Extremities: no cyanosis, no edema Neurologic: normal mental status, non-focal exam, pupils equal and round, CN II- XII normal Psychiatric: mood appropriate CBC and BMP: 09/06/17 03:53 09/06/17 03:53 ABG, PT/INR, D-dimer: PT/INR, D-dimer PT 13.6 Sec. (12.2-14.9) 09/05/17 11:05 INR 0.99 (0.87-1.13) 09/05/17 11:05 Abnormal lab findings: Abnormal Labs 09/05/17 09/05/17 09/05/17 10:25 10:25 11:05 MCH MCHC 35 H RDW 16.2 H Lymph % (Auto) [place] % (Auto) 7.4 H Lymph # Seg Neutrophils % Seg Neutrophils # Sodium Potassium 3.5 L Carbon Dioxide Glucose ALT 5 L NT-Pro-B Natriuret Pep 856.7 H HCG, Quant 5888 H 09/06/17 09/06/17 09/07/17 03:53 03:53 17:09 MCH 27 L MCHC RDW 15.8 H Lymph % (Auto) 7.9 L [place] % (Auto) Lymph # 0.8 L Seg Neutrophils % 89.2 H Seg Neutrophils # 8.9 H Sodium 136 L Potassium Carbon Dioxide 20 L Glucose 124 H ALT NT-Pro-B Natriuret Pep HCG, Quant 8834 H
[2017-09-07] MEDS: PEPCID PO SCH (22:10)
[2017-09-08] MEDS: BENADRYL PO SCH ×3 (01:06→17:43)
[2017-09-08] MEDS: MORPHINE IV PRN ×3 (01:14→19:45)
[2017-09-08] MEDS: NORMODYNE PO SCH ×3 (06:04→21:31)
[2017-09-08] MEDS: ALDOMET PO SCH ×3 (06:05→21:30)
--- NOTE | 2017-09-08 09:39 | History and Physical Report ---
CHIEF COMPLAINT: High blood pressure. HISTORY OF PRESENT ILLNESS: A 37-year-old female with falling on Monday and 5 weeks comes in for lower abdominal pain and some cramping. Also, high blood pressure. The patient had a demise recently. Has history of hypertension, taking losartan and carvedilol, which does not seem to be controlling the blood pressure. The patient says that she is compliant with her medications. The patient also has some swelling of the upper lip. PAST MEDICAL HISTORY: Significant for hypertension and headaches, preeclampsia with other pregnancies. PAST SURGICAL HISTORY: Bilateral lumpectomy, carpal tunnel surgery in left hand and . SOCIAL HISTORY: Does not smoke. No alcohol, no recreational drugs. FAMILY HISTORY: Hypertension. CURRENT MEDICATIONS: Losartan and Coreg. REVIEW OF SYSTEMS: Significant for high blood pressure and swelling of the upper lip. Otherwise, review of systems are negative. PHYSICAL EXAMINATION: GENERAL: Young female, cooperative during examination. VITAL SIGNS: Initial blood pressure was very high in the range of 185/118 and 205/123, which has come down to somewhat with Cardene drip. Her pulse is 102, temperature is 98, respirations are 22. HEENT: Unremarkable. Pupils equal and reactive. NECK: Supple, no lymphadenopathy, no thyromegaly. LUNGS: Clear to auscultation and percussion. Good air entry. CARDIOVASCULAR: S1, S2 heard. No gallop, no murmur, no rub. Apical impulse in left fifth intercostal space and midclavicular line. ABDOMEN: Soft and benign. No hepatosplenomegaly. No guarding, no rigidity. Hernial orifices are normal. EXTREMITIES: Good pedal pulses. No pedal edema. LABORATORY DATA: Blood counts are normal. Potassium is slightly low at 3.5. Electrolytes are normal. BNP is 856. HCG is 5888. Drug screen is negative. Albumin is 4.0. Thyroid levels are normal. ASSESSMENT AND PLAN: 1. Hypertensive emergency. The patient was initiated on Cardene drip and in the meantime, the patient was also started on labetalol 300 q. 8 hours. and hydralazine 25 q. 8 hours. Losartan was stopped because of the upper lip swelling and also Coreg was held because of the . The patient's blood pressure has come down while in the Emergency Room and the patient was downgraded to telemetry. 2. Threatened . The patient has intermittent bleeding. CATIA DESIGNER consult requested. The patient has a threatened . 2. Hypokalemia, supplemented. 3. Deep venous thrombosis prophylaxis. No heparin at this point. Only SCDs. The patient to be discharged on labetalol and hydralazine because of the future pregnancies. 4. Angioedema. IV Solu-Medrol given in the ER. The patient initiated on IV famotidine and IV Benadryl. JOB# [id number] VSM/NTS
[2017-09-08] MEDS: SODIUM CHLORIDE FLUSH SYRINGE 10 ML IV SCH ×2 (11:18→21:32)
[2017-09-08] MEDS: PEPCID PO SCH ×2 (11:18→21:31)
--- NOTE | 2017-09-08 15:09 | Progress Note ---
Assessment and Plan - Patient Problems (1) Uncontrolled hypertension Current Visit: Yes Status: Acute Plan to address problem: Still high To discharge on Mdopa and Labetolol No Losartan b/c of potential (2) Current Visit: Yes Status: Acute Qualifiers: Weeks of gestation: less than 8 weeks Qualified Code(s): Z3A.01 - Less than 8 weeks gestation of Plan to address problem: Some bleeding buttermaker consult appreciated reconsult for threatened (3) Angioedema Current Visit: Yes Status: Acute Qualifiers: Encounter type: initial encounter Qualified Code(s): T78.3XXA - Angioneurotic edema, initial encounter Plan to address problem: Mild-Benadryl and Famotidine (4) Threatened Current Visit: Yes Status: Acute Plan to address problem: Reconsulted Lead Tank Mechanic (5) DVT prophylaxis Current Visit: Yes Status: Acute Plan to address problem: only SCD's Subjective Date of service: 09/08/17 Principal diagnosis: Htn Emergency Interval history: Sx better Recurrence of vaginal bleeding Objective - Constitutional Vitals: Vital Signs - 12hr 09/08/17 09/08/17 09/08/17 04:33 08:01 12:09 Temperature 98.5 F Pulse Rate 91 H 95 H Respiratory 18 Rate Blood Pressure 166/95 174/101 Blood Pressure 170/90 [Left] O2 Sat by Pulse 99 99 Oximetry 09/08/17 09/08/17 09/08/17 12:18 13:52 13:58 Temperature 98.0 F Pulse Rate 78 100 H Respiratory 18 Rate Blood Pressure 189/116 160/91 160/91 Blood Pressure [Left] O2 Sat by Pulse 100 99 Oximetry General appearance: Present: no acute distress, well-nourished - EENT Eyes: PERRL, EOM intact ENT: hearing intact, clear oral mucosa Ears: bilateral: normal - Neck Neck: supple, normal ROM - Respiratory Respiratory effort: normal Respiratory: bilateral: CTA - Breasts Breasts: normal - Cardiovascular Rhythm: regular Heart Sounds: Present: S1 & S2. Absent: gallop, rub Extremities: pulses intact, No edema, normal color, Full ROM - Gastrointestinal General gastrointestinal: Present: soft, non-tender, non-distended, normal bowel sounds - Genitourinary Female genitourinary: normal - Integumentary Integumentary: clear, warm, dry - Musculoskeletal Musculoskeletal: 1, strength equal bilaterally - Neurologic Neurologic: moves all extremities - Psychiatric Psychiatric: memory intact, appropriate mood/affect, intact judgment & insight - Labs CBC & Chem 7: 09/06/17 03:53 09/06/17 03:53 Labs: Abnormal lab results 09/07/17 Range/Units 17:09 HCG, Quant 8834 H (0-4) mIU/mL
--- NOTE | 2017-09-08 17:47 | Event Note ---
Date: 09/08/17 Call to see patient due to vaginal bleeeding. Patient complains about intermitent bleeding, not more than a period, denies cramping. Minium to moderate amount on pad. Symptoms c/w threaten . Diagnosis explained. S/ S of SAB and precautions given. Ok from our standpoint for patient to go home on bedrest. She has a f/u appointment for Monday 09/11 in my office
--- NOTE | 2017-09-08 21:40 | Progress Note ---
Assessment and Plan Patient alert, awake and resting on room air.No complaint of chest pain or shortness of breath.O2 saturation 99%. No acute respiratory distress. - Patient Problems (1) Angioedema Current Visit: Yes Status: Acute Qualifiers: Encounter type: initial encounter Qualified Code(s): T78.3XXA - Angioneurotic edema, initial encounter Plan to address problem: No complaint of chest pain or shortness of breath at this time. Patient is on I/V solumedral Patient is getting benedril also. (2) Current Visit: Yes Status: Acute Qualifiers: Weeks of gestation: less than 8 weeks Qualified Code(s): Z3A.01 - Less than 8 weeks gestation of Plan to address problem: Management as per DIAGNOSTIC TECHNICIAN. (3) Uncontrolled hypertension Current Visit: Yes Status: Acute Plan to address problem: Management as per primary care. Subjective Date of service: 09/08/17 Principal diagnosis: Htn Emergency Interval history: Patient alert, awake and resting on room air.No complaint of chest pain or shortness of breath.O2 saturation 99%. No acute respiratory distress. Objective Vital Signs - 12hr 09/08/17 09/08/17 09/08/17 12:09 12:18 13:52 Temperature 98.0 F Pulse Rate 78 100 H Respiratory 18 Rate Blood Pressure 189/116 160/91 Blood Pressure 170/90 [Left] O2 Sat by Pulse 100 99 Oximetry 09/08/17 09/08/17 09/08/17 13:58 16:33 17:37 Temperature 98.4 F Pulse Rate Respiratory 18 Rate Blood Pressure 160/91 161/106 169/101 Blood Pressure [Left] O2 Sat by Pulse Oximetry 09/08/17 09/08/17 09/08/17 20:15 20:56 21:30 Temperature 97.8 F Pulse Rate 82 82 Respiratory 18 18 Rate Blood Pressure 184/111 184/111 Blood Pressure [Left] O2 Sat by Pulse 99 Oximetry 09/08/17 21:31 Temperature Pulse Rate 82 Respiratory Rate Blood Pressure 184/111 Blood Pressure [Left] O2 Sat by Pulse Oximetry Constitutional: no acute distress, alert Eyes: non-icteric Neck: supple, no lymphadenopathy Effort: normal Ascultation: Bilateral: clear Cardiovascular: regular rate and rhythm Gastrointestinal: normoactive bowel sounds, soft, non-tender Integumentary: normal Extremities: no cyanosis, no edema Neurologic: normal mental status, non-focal exam, pupils equal and round, CN II- XII normal Psychiatric: mood appropriate CBC and BMP: 09/06/17 03:53 09/06/17 03:53 ABG, PT/INR, D-dimer: PT/INR, D-dimer PT 13.6 Sec. (12.2-14.9) 09/05/17 11:05 INR 0.99 (0.87-1.13) 09/05/17 11:05 Abnormal lab findings: Abnormal Labs 09/05/17 09/05/17 09/05/17 10:25 10:25 11:05 MCH MCHC 35 H RDW 16.2 H Lymph % (Auto) [place] % (Auto) 7.4 H Lymph # Seg Neutrophils % Seg Neutrophils # Sodium Potassium 3.5 L Carbon Dioxide Glucose ALT 5 L NT-Pro-B Natriuret Pep 856.7 H HCG, Quant 5888 H 09/06/17 09/06/17 09/07/17 03:53 03:53 17:09 MCH 27 L MCHC RDW 15.8 H Lymph % (Auto) 7.9 L [place] % (Auto) Lymph # 0.8 L Seg Neutrophils % 89.2 H Seg Neutrophils # 8.9 H Sodium 136 L Potassium Carbon Dioxide 20 L Glucose 124 H ALT NT-Pro-B Natriuret Pep HCG, Quant 8834 H
[2017-09-08] MEDS: BENADRYL IV PRN (21:47)
[2017-09-09] MEDS: BENADRYL PO SCH ×2 (00:40→14:00)
[2017-09-09] MEDS: ALDOMET PO SCH ×2 (06:06→14:56)
[2017-09-09] MEDS: NORMODYNE PO SCH ×2 (06:06→14:56)
[2017-09-09] MEDS ORDERED: CATAPRES PO PRN (09:02)
[2017-09-09] MEDS: FIORICET PO PRN ×2 (10:00→16:31)
[2017-09-09] MEDS: SODIUM CHLORIDE FLUSH SYRINGE 10 ML IV SCH (10:01)
[2017-09-09] MEDS: PEPCID PO SCH (10:01)
--- NOTE | 2017-09-09 16:49 | Discharge Summary ---
Providers - Providers Date of Admission: 09/05/17 11:37 Date of discharge: 09/09/17 Attending physician: TOSHA DASILVA 09/05/17 17:48 Consult to Dietitian/Nutrition [CONS] Routine Physician Instructions: Reason For Exam: Reason for Consult: Diet education 09/05/17 17:50 Consult to Physician [CONS] Routine Comment: Consulting Provider: CARLOZ MONDRAGON Physician Instructions: Reason For Exam: Hypertensive emergency 09/05/17 22:11 Consult to Physician [CONS] Stat Comment: Consulting Provider: HUE SARAH Physician Instructions: Reason For Exam: vag bleeding 09/07/17 16:38 Consult to Physician [CONS] Routine Comment: Consulting Provider: ULISES DALAL Physician Instructions: Reason For Exam: threatened Primary care physician: MEAT MANAGER Hospitalization Condition: Stable Hospital course: Assessment and Plan - Patient Problems (1) Uncontrolled hypertension Current Visit: Yes Status: Acute Plan to address problem: Better--158/100 To discharge on Mdopa and Labetolol No Losartan b/c of potential (2) Current Visit: Yes Status: Acute Qualifiers: Weeks of gestation: less than 8 weeks Qualified Code(s): Z3A.01 - Less than 8 weeks gestation of Plan to address problem: Some bleeding pharmacy service associate consult appreciated Dr Dalal to see as outpatient on Monday09/11/17 (3) Angioedema Current Visit: Yes Status: Acute Qualifiers: Encounter type: initial encounter Qualified Code(s): T78.3XXA - Angioneurotic edema, initial encounter Plan to address problem: Mild-Benadryl and Famotidine Resolved (4) Threatened Current Visit: Yes Status: Acute Plan to address problem: Reconsulted Instrumentation Fitter F/u as outpatient (5) DVT prophylaxis Current Visit: Yes Status: Acute Plan to address problem: only SCD's Disposition: DC-01 TO HOME OR SELFCARE Core Measure Documentation - Palliative Care Palliative Care/ Comfort Measures: Not Applicable - Core Measures Any of the following diagnoses?: none Exam - Constitutional Vitals: Temp Pulse Resp BP Pulse Ox 99.0 F 92 H 20 158/100 100 09/09/17 07:59 09/09/17 07:59 09/09/17 07:59 09/09/17 14:56 09/09/17 07:59 General appearance: Present: no acute distress, well-nourished - EENT Eyes: Present: PERRL ENT: hearing intact, clear oral mucosa - Neck Neck: Present: supple, normal ROM - Respiratory Respiratory effort: normal Respiratory: bilateral: CTA - Cardiovascular Heart rate: 78 Rhythm: regular (78) Heart Sounds: Present: S1 & S2. Absent: rub, click - Extremities Extremities: no ischemia, pulses intact, pulses symmetrical, No edema Peripheral Pulses: within normal limits - Abdominal General gastrointestinal: Present: deferred, soft, non-tender, non-distended, normal bowel sounds Female genitourinary: Present: normal - Integumentary Integumentary: Present: clear, warm, dry - Musculoskeletal Musculoskeletal: gait normal, strength equal bilaterally - Psychiatric Psychiatric: appropriate mood/affect, intact judgment & insight - Neurologic Neurologic: CNII-XII intact, moves all extremities Plan Activity: no restrictions Diet: low salt Follow up with: PRIMARY CAREMD [Primary Care Provider] - 3-5 Days ULISES DALAL MD [Staff Physician] - 7 Days
[2017-09-09 18:24] VITALS: BP 157/94
== END 2017-09-09 19:00 | disposition home or self-care (01) | DRG 781 ==
LOC: ED 09:55 → CC1 11:37 → 4A 09-06 08:55 → 3A 09-08 12:56
PROVIDERS: ADMIT Internal Medicine; ATTEND Internal Medicine
DX: O10.911 Unspecified pre-existing hypertension complicating pregnancy, first trimester (principal); O20.0 Threatened abortion; I16.1 Hypertensive emergency; T78.3XXA Angioneurotic edema, initial encounter; Z3A.01 Less than 8 weeks gestation of pregnancy; O26.891 Other specified pregnancy related conditions, first trimester; E87.6 Hypokalemia
CPT/HCPCS: 36415; 76801; 76817; 80048; 80053; 80074; 80307; 81001; 82550; 82553; 83735; 83880; 84439; 84443; 84702; 85025; 85610; 85730; 93005; 93010; 96365; 96375; J0360; J1200; J2270; J2920; J2930; J7050; J7120